=== PATIENT | female | born 1950 | race Caucasian/White ===

== ENCOUNTER 2016-07-13 12:05 | Outpatient (CLI) | payer OTHER | END 2016-07-13 12:06 | disposition home or self-care (01) | DX: M85.88 Other specified disorders of bone density and structure, other site (principal) ==

== ENCOUNTER 2016-07-13 13:30 | Outpatient (CLI) | payer OTHER ==
--- NOTE | 2016-07-14 18:53 | Mammography Report ---
DIGITAL SCREENING MAMMOGRAM: 07/13/2016 CLINICAL INDICATION: A 66-year-old for screening. COMPARISON: 06/2015, 08/2013, 12/2011, 12/2010, 02/2009. TECHNIQUE: Routine CC and MLO projections were obtained of the breasts. The breasts demonstrate scattered fibroglandular densities bilaterally. Coarse and punctate, typical ly benign calcifications are present. No suspicious masses, clustered microcalcifications, or region s of architectural distortion are identified. IMPRESSION: BENIGN FINDINGS. RECOMMENDATION: ROUTINE ANNUAL SCREENING UNLESS OTHERWISE CLINICALLY INDICATED. BIRADS CATEGORY: 2, BENIGN FINDINGS. STANDARD QUALIFYING STATEMENTS 1. This examination was reviewed with the aid of Computed-Aided Detection (CAD). 2. A negative or benign imaging report should not delay biopsy if clinically suspicious findings are present. Consider surgical consultation if warranted. More than 5% of cancers are not identified b y imaging. 3. Dense breasts may obscure an underlying neoplasm. JOB #: [id number] EXT JOB #:[id number]
== END 2016-07-13 23:59 | disposition home or self-care (01) ==
LOC: DI 13:30
PROVIDERS: ATTEND Internal Medicine
DX: Z12.31 Encounter for screening mammogram for malignant neoplasm of breast (principal)
CPT/HCPCS: 77067

== ENCOUNTER 2016-12-10 07:55 | Day surgery (SDC) | payer OTHER ==
[~2016-12-10 07:55] MED LIST: BRIMONIDINE 0.2% OPHTH DROPS 5 ML OPTH ONE; BSS/LIDOCAINE/EPINEPHRINE 1 ML SYRINGE IO ONE; CHONDR SULF/HYALURONATE SYRINGE IO ONE; EPINEPHrine 1 MG/ML AMP IVP ONE; PHENYLEPHRINE 2.5% OPHTH 2 ML DROPS ONE; PROPARACAINE 0.5% OPHTH DROPS 15 ML OPTH ONE; TIMOLOL 0.5% OPHTH DROPS OPTH ONE; TRIAMCIN/MOXIFLOX/VANCO 1 ML VIAL IO ONE
[2016-12-10] MEDS ORDERED: CYCLOPENTOLATE 1% OPHTH DROPS 2 ML OPTH ONE (08:16)
[2016-12-10] MEDS ORDERED: PHENYLEPHRINE 2.5% OPHTH 2 ML DROPS OPTH ONE (08:16)
[2016-12-10] MEDS ORDERED: KETOROLAC 0.45% OPHTH DROPS OPTH ONE (08:16)
[2016-12-10] MEDS ORDERED: PROPARACAINE 0.5% OPHTH DROPS 15 ML OPTH ONE ×2 (08:16→09:20)
[2016-12-10] MEDS ORDERED: LACTATED RINGERS 500 ML IV ONE (08:23)
[2016-12-10] MEDS ORDERED: MIDAZOLAM 2 MG/2 ML VIAL IVP ONE (09:07)
[2016-12-10] MEDS ORDERED: BRIMONIDINE 0.2% OPHTH DROPS 5 ML OPTH ONE (09:19)
[2016-12-10] MEDS ORDERED: BSS/LIDOCAINE/EPINEPHRINE 1 ML SYRINGE IO ONE (09:20)
[2016-12-10] MEDS ORDERED: CHONDR SULF/HYALURONATE SYRINGE IO ONE (09:20)
[2016-12-10] MEDS ORDERED: TIMOLOL 0.5% OPHTH DROPS OPTH ONE (09:20)
[2016-12-10] MEDS ORDERED: EPINEPHrine 1 MG/ML AMP IVP ONE (09:20)
[2016-12-10] MEDS ORDERED: TRIAMCIN/MOXIFLOX/VANCO 1 ML VIAL IO ONE (09:21)
[2016-12-10 09:41] VITALS: BP 137/67
--- NOTE | 2016-12-13 04:52 | OPERATIVE REPORT ---
DATE OF SURGERY: 12/10/2016 00:00:00 PREOPERATIVE DIAGNOSIS: Visually significant cataract, left eye; this was her first cataract surgery . POSTOPERATIVE DIAGNOSIS: Visually significant cataract, left eye; this was her first cataract surger y. PROCEDURE: Phacoemulsification and posterior chamber intraocular lens implant, left eye. SURGEON: Darshan Carmichael MD ANESTHESIA: Monitored anesthesia care. COMPLICATIONS: None. OPERATIVE INDICATIONS: This is a 66-year-old woman with progressive vision loss in the left eye due to 2+ nuclear sclerotic and 2 to 3+ cortical cataract. Best corrected visual acuity was 20/25, with a glare to 20/80 in the left eye. INDICATIONS FOR SURGERY: Difficulty reading, difficulty driving in low light or at night, difficulty driving at night because of headlights from other vehicles, and difficulty with glare of bright ligh ts in any situation. She was consented at length concerning the risks and benefits of cataract surge ry, after which she expressed a desire to proceed with surgery. OPERATIVE PROCEDURE: The patient was taken into OR #2 and placed under monitored anesthesia care. A surgical time-out was conducted, confirming the correct patient, correct procedure, and correct surgi deidre site. She was given topical anesthesia and then prepped and draped in the usual sterile fashion. The eye was entered at the 6- and 3-o'clock positions. Intracameral shugarcaine was injected into the anterior chamber, followed by Viscoat. A continuous tear curvilinear capsulorrhexis was performed. T he nucleus was hydrodissected and phacoemulsified. The cortex was evacuated using automated and infus ion aspiration. Provisc was injected into the capsular bag, and an 11.5-diopter intraocular lens was inserted into the bag. Approximately 0.7 mL of a mixture of triamcinolone, moxifloxacin, and vancomy cherelle was injected subconjunctivally in the superior quadrant for infection and inflammation prophylaxi s. I/A was used to evacuate the viscoelastic materials. The eye was inflated to physiologic pressur e using a balanced salt solution and found to be watertight. The patient was taken from the operating room in good condition and given postoperative instructions. JOB #: [id number] EXT JOB #:[id number]
== END 2016-12-10 07:56 | disposition home or self-care (01) ==
LOC: SDS 07:55
PROVIDERS: ATTEND Ophthalmology
PROC: 08RK3JZ Replacement of Left Lens with Synthetic Substitute, Percutaneous Approach (ICD-10-PCS; principal; 2016-12-10 09:00)
DX: E11.36 Type 2 diabetes mellitus with diabetic cataract (principal); H25.812 Combined forms of age-related cataract, left eye; E03.9 Hypothyroidism, unspecified; I48.91 Unspecified atrial fibrillation; G47.33 Obstructive sleep apnea (adult) (pediatric); I50.9 Heart failure, unspecified; I13.0 Hypertensive heart and chronic kidney disease with heart failure and stage 1 through stage 4 chronic kidney disease, or unspecified chronic kidney disease; N18.9 Chronic kidney disease, unspecified; Z79.84 Long term (current) use of oral hypoglycemic drugs; Z87.891 Personal history of nicotine dependence; Z79.01 Long term (current) use of anticoagulants; Z79.4 Long term (current) use of insulin
CPT/HCPCS: 66984; A9270; V2632

== ENCOUNTER 2016-12-28 18:41 | Outpatient (CLI) | payer OTHER ==
--- NOTE | 2016-12-28 23:58 | XRAY Report ---
EXAM: RIGHT KNEE RADIOGRAPHY EXAM DATE: 12/28/2016 07:05 PM. CLINICAL HISTORY: R LEG PAIN. COMPARISON: 03/05/2014. TECHNIQUE: 3 views. FINDINGS: Bones: Normal. No fractures or bone lesions. Joints: Normal. No effusion. No subluxations. Soft Tissues: Normal. No soft tissue swelling. IMPRESSION: Stable negative right knee radiography. [facility] Referring Provider Line: [phone] SITE ID: [id number]
--- NOTE | 2016-12-29 02:34 | Ultrasound Report ---
EXAM: RIGHT LOWER EXTREMITY VENOUS ULTRASOUND EXAM DATE: 12/28/2016 07:42 PM. CLINICAL HISTORY: Right leg pain. COMPARISON: None. TECHNIQUE: Real-time sonographic vascular imaging was performed by the licensed vocational nurse through the lower extremity utilizing both color-flow and Doppler spectral analysis. Multiple electronics parts sales representative static ricardo ges were saved for review. FINDINGS: Common Femoral Vein (CFV): Normal. CFV-GSV Junction: Normal. Profunda Femoral Vein (PFV): Normal. Femoral Vein (FV) Prox: Normal. Femoral Vein (FV) Mid: Normal. Femoral Vein (FV) Dist: Normal. Popliteal Vein: Normal. Posterior Tibial Veins: Normal. Peroneal Veins: Normal. Contralateral Left CFV: Normal. Other: At the site of reported pain in the anterior right knee, there is a 4 x 1 x 4 cm fluid pocket, possibly small hematoma. IMPRESSION: 1. No evidence for deep venous thrombosis. 2. At the site of reported pain in the anterior right knee, there is a 4 x 1 x 4 cm fluid pocket, pos sibly small hematoma. [facility] Referring Provider Line: [phone] SITE ID: [id number]
== END 2016-12-28 18:42 | disposition home or self-care (01) ==
LOC: DI 18:41
PROVIDERS: ATTEND Internal Medicine
DX: M79.604 Pain in right leg (principal); R93.6 Abnormal findings on diagnostic imaging of limbs

== ENCOUNTER 2017-01-28 07:06 | Day surgery (SDC) | payer OTHER ==
[~2017-01-28 07:06] MED LIST changes: +BRIMONIDINE 0.2% OPHTH DROPS 5 ML ONE; -BRIMONIDINE 0.2% OPHTH DROPS 5 ML OPTH ONE; -BSS/LIDOCAINE/EPINEPHRINE 1 ML SYRINGE IO ONE; -CHONDR SULF/HYALURONATE SYRINGE IO ONE; -EPINEPHrine 1 MG/ML AMP IVP ONE; -PHENYLEPHRINE 2.5% OPHTH 2 ML DROPS ONE; -PROPARACAINE 0.5% OPHTH DROPS 15 ML OPTH ONE; +TIMOLOL 0.5% OPHTH DROPS ONE; -TIMOLOL 0.5% OPHTH DROPS OPTH ONE; -TRIAMCIN/MOXIFLOX/VANCO 1 ML VIAL IO ONE
[2017-01-28] MEDS ORDERED: LACTATED RINGERS 1,000 ML IV ONE (07:15)
[2017-01-28] MEDS ORDERED: KETOROLAC 0.45% OPHTH DROPS ONE (07:18)
[2017-01-28] MEDS ORDERED: PHENYLEPHRINE 2.5% OPHTH 2 ML DROPS ONE (07:18)
[2017-01-28] MEDS ORDERED: CYCLOPENTOLATE 1% OPHTH DROPS 2 ML ONE (07:19)
[2017-01-28] MEDS ORDERED: PROPARACAINE 0.5% OPHTH DROPS 15 ML ONE (07:19)
[2017-01-28] MEDS ORDERED: KETOROLAC 0.45% OPHTH DROPS OPTH ONE (07:35)
[2017-01-28] MEDS ORDERED: PHENYLEPHRINE 2.5% OPHTH 2 ML DROPS OPTH ONE (07:35)
[2017-01-28] MEDS ORDERED: CYCLOPENTOLATE 1% OPHTH DROPS 2 ML OPTH ONE (07:35)
[2017-01-28] MEDS ORDERED: PROPARACAINE 0.5% OPHTH DROPS 15 ML OPTH ONE (07:35)
[2017-01-28] MEDS ORDERED: CHONDR SULF/HYALURONATE SYRINGE IO ONE (08:31)
[2017-01-28] MEDS ORDERED: PROPARACAINE 0.5% OPHTH DROPS 15 ML RIGHTEYE ONE (08:31)
[2017-01-28] MEDS ORDERED: BSS/LIDOCAINE/EPINEPHRINE 1 ML SYRINGE IO ONE ×2 (08:31)
[2017-01-28] MEDS ORDERED: TIMOLOL 0.5% OPHTH DROPS OPTH ONE (08:31)
[2017-01-28] MEDS ORDERED: TRIAMCIN/MOXIFLOX/VANCO 1 ML VIAL IO ONE ×2 (08:31)
[2017-01-28] MEDS ORDERED: EPINEPHrine 1 MG/ML AMP IVP ONE (08:31)
[2017-01-28] MEDS ORDERED: BRIMONIDINE 0.2% OPHTH DROPS 5 ML OPTH ONE (08:31)
[2017-01-28] MEDS ORDERED: PROPOFOL 200 MG/20 ML VIAL IVP ONE (08:38)
[2017-01-28] MEDS ORDERED: MIDAZOLAM 2 MG/2 ML VIAL IVP ONE (08:38)
[2017-01-28] MEDS ORDERED: LIDOCAINE-MPF 2% 5 ML VIAL IM ONE (08:38)
[2017-01-28 09:00] VITALS: BP 133/72
--- NOTE | 2017-01-28 09:11 | OPERATIVE REPORT ---
DATE OF SURGERY: 01/28/2017 00:00:00 PREOPERATIVE DIAGNOSIS: Visually significant cataract, right eye. Cataract surgery was performed on t he left eye on 12/10/2016. POSTOPERATIVE DIAGNOSIS: Visually significant cataract, right eye. Cataract surgery was performed on the left eye on 12/10/2016. NAME OF PROCEDURE: Phacoemulsification posterior chamber intraocular lens implant, right eye. SURGEON: Darshan Carmichael MD. ANESTHESIA: Monitored anesthesia care. COMPLICATIONS: None. OPERATIVE INDICATIONS: This is a 66-year-old woman with progressive vision loss in the right eye due to 2+ nuclear sclerotic and 2 to 3+ cortical cataract. Best corrected visual acuity was 20/25 with gl are to 20/70 in the right eye. Indications for surgery were overall decrease in vision, difficulty dr iving in low light or at night, difficulty driving at night because of head lights from other vehicle s, and difficulty with glare or bright lights in any situation. She was consented at length concernin g the risks and benefits of cataract surgery, after which she expressed a desire to proceed with surg patricia. OPERATIVE PROCEDURE: The patient was taken into OR #2 and placed under monitored anesthesia care. A s urgical time-out was conducted confirming the correct patient, correct procedure, and correct surgica l site. She was given topical anesthesia and then prepped and draped in the usual sterile fashion. Th e eye was entered at the 12 and 9 o'clock positions. Intracameral Shugarcaine was injected into the a nterior chamber followed by Viscoat. A continuous tear curvilinear capsulorrhexis was performed. The nucleus was hydrodissected and phacoemulsified. The cortex was evacuated using automated infusion asp iration. Provisc was injected in the capsular bag and a 14.0 diopter intraocular lens was inserted in to the bag. Approximately 0.7 mL of a mixture of triamcinolone, moxifloxacin, and vancomycin was inje cted subconjunctivally in the superior quadrant for infection and inflammation prophylaxis. I/A was u sed to evacuate the viscoelastic materials. The eye was inflated to a physiologic pressure using manisha nced salt solution and found to be watertight. The patient was taken from the operating room in good condition, given postoperative instructions. JOB #: [id number] EXT JOB #:[id number]
== END 2017-01-28 07:07 | disposition home or self-care (01) ==
LOC: SDS 07:06
PROVIDERS: ATTEND Ophthalmology
PROC: 08RJ3JZ Replacement of Right Lens with Synthetic Substitute, Percutaneous Approach (ICD-10-PCS; principal; 2017-01-28 08:30)
DX: H25.811 Combined forms of age-related cataract, right eye (principal); E11.9 Type 2 diabetes mellitus without complications; I10 Essential (primary) hypertension; I48.91 Unspecified atrial fibrillation; Z79.01 Long term (current) use of anticoagulants; E03.9 Hypothyroidism, unspecified; Z79.4 Long term (current) use of insulin; Z79.84 Long term (current) use of oral hypoglycemic drugs; Z87.891 Personal history of nicotine dependence
CPT/HCPCS: 66984; A9270; J3490; J7120; V2632

== ENCOUNTER 2017-02-11 14:14 | Emergency (ER) | payer OTHER ==
[2017-02-11 14:31] VITALS: BP 122/74
--- NOTE | 2017-02-11 15:51 | XRAY Preliminary Report ---
Exam: XR Knee 3 View RT IMPRESSION: 1. No acute findings are seen. 2. Mild medial compartment femoral tibial joint space narrowing. [facility] SITE ID: [id number]
--- NOTE | 2017-02-11 15:53 | XRAY Report ---
EXAM: RIGHT KNEE RADIOGRAPHY EXAM DATE: 02/11/2017 03:26 PM. CLINICAL HISTORY: Right knee pain. COMPARISON: Right knee 12/28/2016. TECHNIQUE: 3 views. FINDINGS: Bones: No fractures or bone lesions. Joints: No dislocation. Mild medial compartment femoral tibial joint space narrowing. No significant effusion. Soft Tissues: Unremarkable IMPRESSION: 1. No acute findings are seen. 2. Mild medial compartment femoral tibial joint space narrowing. [facility] Referring Provider Line: [phone] SITE ID: [id number]
--- NOTE | 2017-02-11 16:06 | ED Physician Documentation ---
PD HPI LOWER EXT INJURY - Stated complaint Stated Complaint: RT KNEE PX - Chief complaint Chief Complaint: Ext Problem - History obtained from History obtained from: Patient - History of Present Illness PD HPI LOW EXT INJURY LOCATION: Right, Knee Type of injury: Other (No recent trauma.) Timing - onset: Today Worsened by: Other (Worse with weightbearing.) Similar symptoms before: Diagnosis (Previously diagnosed with contusion of the right knee with negative x-ray 6 weeks ago.) - Additional information Additional information: The patient is a 66-year-old female who presents with pain in her right knee that started earlier today while walking. The pain is worse with weightbearing. She denies any recent traumatic injury. She denies fever. She has a history of similar pain in her knee in the past. After a negative x-ray about 6 weeks ago. She was diagnosed with knee contusion. Review of Systems Constitutional: denies: Fever Nose: denies: Congestion Respiratory: denies: Dyspnea GI: denies: Nausea, Vomiting Skin: denies: Rash Musculoskeletal: reports: Joint pain (right knee). 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 Cardiovascular: Other - Present Medications Home Medications: Ambulatory Orders Medication Instructions Recorded Confirmed Diltiazem HCl [Taztia Xt] 360 mg PO DAILY 06/26/14 02/11/17 Insulin Aspart [Novolog] 4 unit SQ DAILY 06/26/14 02/11/17 Liraglutide [Victoza 2-Fransisco] 1.5 ml SUBQ DAILY 06/26/14 02/11/17 Metformin HCl 500 tab PO BID 06/26/14 02/11/17 Simvastatin 20 mg PO DAILY 06/26/14 02/11/17 Warfarin [Coumadin] 1 tab PO DAILY 06/26/14 02/11/17 Furosemide 20 mg PO DAILY 09/14/14 02/11/17 Metoprolol Tartrate 12.5 mg PO BID 12/25/14 02/11/17 Lisinopril 10 mg PO BID 01/22/15 02/11/17 Cholecalciferol (Vitamin D3) 400 unit PO DAILY 08/30/15 02/11/17 [Vitamin D] Iron,Carbonyl/Vit C/Fos [Chewable 325 mg PO DAILY 08/30/15 02/11/17 Iron 30 mg Tablet] Multivitamin [Multivitamins] 1 each PO DAILY 08/30/15 02/11/17 Insulin Glargine,Hum.rec.anlog 30 unit SQ DAILY 11/01/15 02/11/17 [Toujeo Solostar] Digoxin 1 tab PO DAILY 12/09/16 02/11/17 Fenofibric Acid 45 mg PO DAILY 12/09/16 02/11/17 Naproxen 1 tab PO DAILY 12/09/16 02/11/17 Prazosin [Minipress] 1 tab PO DAILY 12/09/16 02/11/17 Nystatin Cream [Mycostatin Cream] 1 applic PO DAILY 02/11/17 02/11/17 - Allergies Allergies/Adverse Reactions: Allergies Allergy/AdvReac Type Severity Reaction Status Date / Time estrogens, conjugated Allergy Unknown Verified 02/11/17 14:32 [From Prempro] medroxyprogesterone acetate * Allergy Unknown Verified 02/11/17 14:32 [From Prempro] - Social History Does the pt smoke?: No Smoking Status: Never smoker Does the pt drink ETOH?: No Does the pt have substance abuse?: No - Immunizations Immunizations are current?: Yes - POLST Patient has POLST: No PD ED PE NORMAL - Vitals Vital signs reviewed: Yes (normal) - General General: Alert and oriented X 3, Other (overweight) - HEENT HEENT: Atraumatic - Neck Neck: No bony TTP - Cardiac Cardiac: RRR - Respiratory Respiratory: No respiratory distress - Back Back: No spinal TTP - Derm Derm: No rash - Extremities Extremities: No edema, No calf tenderness / cord, Other (There is mild tenderness to palpation across the anterolateral aspect of the right knee. There is no joint effusion detected, and no warmth or erythema to palpation of the knee. She has full flexion and extension, and there is no ligamentous instability detected. Distal neurovascular is intact.) - Neuro Neuro: Alert and oriented X 3, No motor deficit, No sensory deficit, Normal speech Results - Vitals Vitals: Oxygen O2 Source Room air - Rads (name of study) right knee xray Radiology: Prelim report reviewed, EMP read contemporaneously, See rad report ( No acute findings are seen. Mild medial compartment femoral tibial joint space narrowing.) PD MEDICAL DECISION MAKING - ED course Complexity details: reviewed old records, reviewed results, re-evaluated patient , considered differential, d/w patient, d/w family ED course: The patient's presentation is most consistent with a strain of the right knee. X-ray reveals no bony abnormality. There is no evidence to suggest septic joint or significant ligamentous injury. She may have a meniscus tear causing her symptoms. Treatment in the emergency department included application of a knee immobilizer. This did improve the patient's ability to ambulate with diminished pain. I discussed with her and her the diagnosis, symptomatic treatment and outpatient follow-up, as well as potentially worrisome signs or symptoms that should prompt reevaluation in the emergency department. Departure - Departure Disposition: 01 Home, Self Care Clinical Impression: Right knee sprain Qualifiers: Encounter type: initial encounter Involved ligament of knee: lateral collateral ligament Qualified Code(s): S83.421A - Sprain of lateral collateral ligament of right knee, initial encounter Condition: Stable Instructions: ED Sprain Knee Follow-Up: Phillip Fisher MD [Primary Care Provider] - Comments: Use the knee immobilizer if it provides comfort. Apply ice pack intermittently for the next 3 or 4 days. You can use ibuprofen, up to 800 mg 3 times daily for its anti-inflammatory effect. Follow up with your primary physician within 2 weeks. Call to schedule an appointment. Return to the emergency department if you develop increasing pain or swelling of the knee, or otherwise worsening symptoms. Forms: Activity restrictions Discharge Date/Time: 02/11/17 16:36
== END 2017-02-11 16:36 | disposition home or self-care (01) ==
LOC: ED 14:14
DX: S83.421A Sprain of lateral collateral ligament of right knee, initial encounter (principal); X50.9XXA Other and unspecified overexertion or strenuous movements or postures, initial encounter; Y93.01 Activity, walking, marching and hiking; I11.0 Hypertensive heart disease with heart failure; I50.9 Heart failure, unspecified; I48.91 Unspecified atrial fibrillation; Z79.01 Long term (current) use of anticoagulants; G47.30 Sleep apnea, unspecified; J45.909 Unspecified asthma, uncomplicated; E11.9 Type 2 diabetes mellitus without complications; Z79.4 Long term (current) use of insulin; Z79.84 Long term (current) use of oral hypoglycemic drugs; M19.90 Unspecified osteoarthritis, unspecified site; K21.9 Gastro-esophageal reflux disease without esophagitis
CPT/HCPCS: 99283

== ENCOUNTER 2017-04-23 12:47 | Emergency (ER) | payer OTHER, MEDICARE ==
--- NOTE | 2017-04-23 14:29 | ED Physician Documentation ---
PD HPI HEENT - Stated complaint Stated Complaint: R FACE SWELLING - Chief complaint Chief Complaint: General - History obtained from History obtained from: Patient - History of Present Illness Timing - onset: How many days ago (3) Timing - duration: Days (3) Timing - details: Abrupt onset, Still present Location: Tooth (right cheek and face) Worsens: Position Associated symptoms: Congestion, Swollen nodes, Facial swelling. No: Fever, Headache, Cough Similar symptoms before: Has not had sx before Recently seen: Clinic (seen by PMD today and sent to ED for concern of deeper infection) Review of Systems Constitutional: reports: Fever, Chills Eyes: denies: Loss of vision, Decreased vision Nose: reports: Congestion, Sinus pressure / pain. denies: Rhinorrhea / runny nose Throat: denies: Sore throat Cardiac: denies: Chest pain / pressure, Palpitations Respiratory: denies: Dyspnea, Cough GI: denies: Nausea, Vomiting, Diarrhea Skin: denies: Rash, Lesions PD PAST MEDICAL HISTORY - Past Medical History Cardiovascular: Congestive heart failure, Hypertension, Atrial fibrillation Respiratory: Asthma, Sleep apnea, CPAP use Neuro: None Endocrine/Autoimmune: Type 2 diabetes GI: GERD : Incontinence, Renal insuffiency, Nocturia HEENT: None Psych: Depression Musculoskeletal: Osteoarthritis, Chronic back pain Derm: None - Past Surgical History Past Surgical History: Yes 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 Cardiovascular: Other - Present Medications Home Medications: Ambulatory Orders Medication Instructions Recorded Confirmed Diltiazem HCl [Taztia Xt] 360 mg PO DAILY 06/26/14 03/16/17 Insulin Aspart [Novolog] 4 unit SQ DAILY 06/26/14 03/16/17 Metformin HCl 500 tab PO DAILY 06/26/14 03/16/17 Simvastatin 20 mg PO DAILY 06/26/14 03/16/17 Warfarin [Coumadin] 5 mg PO DAILY 06/26/14 03/16/17 Furosemide 20 mg PO DAILY 09/14/14 03/16/17 Metoprolol Tartrate 25 mg PO DAILY 12/25/14 03/16/17 Lisinopril 10 mg PO BID 01/22/15 03/16/17 Cholecalciferol (Vitamin D3) 400 unit PO DAILY 08/30/15 03/16/17 [Vitamin D] Multivitamin [Multivitamins] 1 each PO DAILY 08/30/15 03/16/17 Prazosin [Minipress] 1 mg PO DAILY 12/09/16 03/16/17 Acetaminophen [Tylenol Extra 500 mg PO DAILY 03/16/17 03/16/17 Strength] Albiglutide [Tanzeum] 30 mg SQ Q7D 03/16/17 03/16/17 Alendronate Sodium [Binosto] 70 mg PO Q7D 03/16/17 03/16/17 Eluxadoline [Viberzi] 75 mg PO DAILY 03/16/17 03/16/17 Fenofibric Acid (Choline) 45 mg PO DAILY 03/16/17 03/16/17 [Trilipix] Ferrous Sulfate 325 mg PO DAILY 03/16/17 03/16/17 Insulin Glargine [Lantus Solostar] 100 unit SQ DAILY 03/16/17 03/16/17 Cephalexin [Keflex] 500 mg PO QID #24 capsule 04/23/17 Ondansetron HCl [Zofran] 4 mg PO Q6H PRN #20 tablet 04/23/17 - Allergies Allergies/Adverse Reactions: Allergies Allergy/AdvReac Type Severity Reaction Status Date / Time estrogens, conjugated Allergy Unknown Verified 02/11/17 14:32 [From Prempro] medroxyprogesterone acetate * Allergy Unknown Verified 02/11/17 14:32 [From Prempro] - Social History Does the pt smoke?: No Smoking Status: Never smoker Does the pt drink ETOH?: No Does the pt have substance abuse?: No - Immunizations Immunizations are current?: Yes - POLST Patient has POLST: No PD ED PE NORMAL - Vitals Vital signs reviewed: Yes - General General: Alert and oriented X 3, No acute distress, Well developed/nourished - HEENT HEENT: Ears normal, Pharynx benign, Other (gum line with some swelling right upper. ) - Neck Neck: Supple, no meningeal sign - Cardiac Cardiac: RRR, No murmur - Respiratory Respiratory: Clear bilaterally - Abdomen Abdomen: Soft, Non tender Results - Vitals Vitals: Oxygen O2 Source Room air - Labs Labs: Laboratory Tests 04/23/17 04/23/17 04/23/17 14:47 15:20 15:20 WBC 17.8 H RBC 4.67 Hgb 12.6 Hct 38.7 MCV 83.0 MCH 27.0 MCHC 32.5 RDW 17.3 H Plt Count 307 MPV 9.0 Neut # 14.9 H Lymph # 1.2 L Baca # 1.7 H Eos # 0.1 Baso # 0.1 Absolute Nucleated RBC 0.01 Nucleated RBC % 0.0 Manual Slide Review Indicated Platelet Estimate NORMAL (130-450,000) Platelet Morphology RARE GIANT PLATELETS RBC Morph Micro Appear NORMAL APPEARANCE PT INR Sodium 127 L Potassium 4.0 Chloride 95 L Carbon Dioxide 21 Anion Gap 11.0 BUN 24 H Creatinine 1.4 H Estimated GFR (MDRD) 38 L Glucose 273 H POC Whole Bld Glucose 263 H Lactic Acid Calcium 7.9 L Total Bilirubin 0.5 AST 22 ALT 20 Alkaline Phosphatase 64 Total Protein 7.9 Albumin 3.3 Globulin 4.6 H Albumin/Globulin Ratio 0.7 L Lipase 21 L 04/23/17 04/23/17 04/23/17 15:20 15:20 15:58 WBC RBC Hgb Hct MCV MCH MCHC RDW Plt Count MPV Neut # Lymph # Baca # Eos # Baso # Absolute Nucleated RBC Nucleated RBC % Manual Slide Review Platelet Estimate Platelet Morphology RBC Morph Micro Appear PT 21.8 H INR 2.0 H Sodium Potassium Chloride Carbon Dioxide Anion Gap BUN Creatinine Estimated GFR (MDRD) Glucose POC Whole Bld Glucose 304 H Lactic Acid 2.1 Calcium Total Bilirubin AST ALT Alkaline Phosphatase Total Protein Albumin Globulin Albumin/Globulin Ratio Lipase PD MEDICAL DECISION MAKING - ED course Complexity details: considered differential (looks like facial cellulitis without abscess. ), d/w patient Departure - Departure Disposition: Home, Self Care Clinical Impression: Facial cellulitis Condition: Stable Record reviewed to determine appropriate education?: Yes Instructions: ED Cellulitis Facial Follow-Up: Phillip Fisher MD [Primary Care Provider] - Prescriptions: Cephalexin [Keflex] 500 mg PO QID #24 capsule Ondansetron HCl [Zofran] 4 mg PO Q6H PRN #20 tablet PRN Reason: Nausea / Vomiting Comments: Warm moist towels to the area of redness and swelling a few times a day. Cephalexin 4 times a day as directed antibiotic. This looks like a facial skin infection and so we will treated that way. Follow-up with Dr. Phillip Fisher early next week. Return to the ER sooner if worsening such as increased redness , pain, fevers, vomiting or other concerns. Discharge Date/Time: 04/23/17 17:49
[2017-04-23] MEDS ORDERED: KETOROLAC 60 MG/2 ML VIAL IVP STA (15:04)
[2017-04-23] MEDS ORDERED: HYDROmorphone 1 MG/ML SYRINGE IVP STA (15:04)
[2017-04-23] MEDS ORDERED: ceFAZolin 2 GM/50 ML 2 GM/50 ML BAG IV ONE ×2 (15:15→15:30)
[2017-04-23 15:30] LABS: BASOPHILS # (AUTO) 0.1 10^3/uL (0.0-0.1); BASOPHILS % (AUTO) 0.5 %; EOSINOPHILS # (AUTO) 0.1 10^3/uL (0.0-0.7); EOSINOPHILS % (AUTO) 0.4 %; HCT - HEMATOCRIT 38.7 % (37.0-47.0); HGB - HEMOGLOBIN 12.6 g/dL (12.0-16.0); LYMPHOCYTES # (AUTO) 1.2 10^3/uL (1.5-3.5); LYMPHOCYTES % (AUTO) 6.6 %; MEAN CORPUSCULAR HGB CONC 32.5 g/dL (32.0-36.0); MONOCYTES # (AUTO) 1.7 10^3/uL (0.0-1.0); MONOCYTES % (AUTO) 9.3 %; NEUTROPHILS # (AUTO) 14.9 10^3/uL (1.5-6.6); NEUTROPHILS % (AUTO) 83.2 %; RED BLOOD COUNT 4.67 10^6/uL (4.20-5.40); RED CELL DISTRIBUTION WIDTH 17.3 % (12.0-15.0); UNCORRECTED WHITE BLOOD COUNT 17.8 x10^3/uL; WHITE BLOOD COUNT 17.8 x10^3/uL (4.8-10.8)
[2017-04-23] MEDS ORDERED: KETOROLAC 30 MG/ML VIAL ONE (15:30)
[2017-04-23] MEDS ORDERED: HYDROmorphone 1 MG/ML SYRINGE ONE (15:30)
[2017-04-23 15:33] LABS: PT - PROTHROMBIN TIME 21.8 secs (9.9-12.6)
[2017-04-23 15:38] LABS: ALBUMIN/GLOBULIN RATIO 0.7 (1.0-2.2); BILIRUBIN,TOTAL 0.5 mg/dL (0.2-1.0); CALCIUM 7.9 mg/dL (8.5-10.3); CREATININE 1.4 mg/dL (0.4-1.0); TOTAL PROTEIN 7.9 g/dL (6.7-8.2)
[2017-04-23] MEDS ORDERED: ONDANSETRON 4 MG/2 ML VIAL IVP STA (15:47)
[2017-04-23] MEDS ORDERED: ONDANSETRON 4 MG/2 ML VIAL ONE (15:53)
[2017-04-23] MEDS ORDERED: SODIUM CHLORIDE 0.9% 1,000 ML IV ONE (15:57)
[2017-04-23 16:01] LABS: PLATELET ESTIMATE, MANUAL NORMAL (130-450,000) (NORMAL); PLATELET MORPHOLOGY RARE GIANT PLATELETS (NORMAL)
[2017-04-23] MEDS ORDERED: INSULIN GLARGINE 300 UNIT/3 ML PEN SUBQ STA (16:03)
[2017-04-23 17:49] VITALS: BP 118/68
== END 2017-04-23 17:49 | disposition home or self-care (01) ==
LOC: ED 12:47
DX: L03.211 Cellulitis of face (principal); I11.0 Hypertensive heart disease with heart failure; I50.9 Heart failure, unspecified; E11.9 Type 2 diabetes mellitus without complications; Z79.4 Long term (current) use of insulin
CPT/HCPCS: 36415; 80053; 83605; 83690; 85025; 85610; 96361; 96365; 96375; 99283; 99284; J0690; J1170; J1815

== ENCOUNTER 2017-04-30 16:40 | Outpatient (CLI) | payer OTHER, MEDICARE ==
--- NOTE | 2017-05-01 23:38 | Ultrasound Report ---
EXAM: AORTIC DOPPLER ULTRASOUND EXAM DATE: 04/30/2017 05:32 PM. CLINICAL HISTORY: Hypertension. Evaluate aorta. COMPARISON: Noncontrast CT abdomen/pelvis 08/17/2014. TECHNIQUE: Real-time sonographic imaging of retroperitoneal vascular structures, including color-flow , Doppler flow and spectral analysis was performed by the rivet heater. Multiple in home sales representative static images were saved for review. FINDINGS: Aorta: The abdominal aorta was adequately visualized. No evidence for abdominal aortic aneurysm. Athe rosclerotic calcifications visualized. Aorta: Proximal: Sagittal AP: 1.6 cm. Mid: Transverse: 1.4 X 1.3 cm. Distal: Transverse: 1.1 X 1.0 cm. Iliac Vessels: The visualized proximal common iliac arteries are normal in caliber. Atherosclerotic c alcifications visualized. Iliacs: Right Iliac: AP Dimension: .93 x .90 cm. Left Iliac: AP Dimension: .86 x .88 cm. IMPRESSION: No abdominal aortic aneurysm. [facility] Referring Provider Line: [phone] SITE ID: [id number]
== END 2017-04-30 16:41 | disposition home or self-care (01) ==
LOC: DI 16:40
PROVIDERS: ATTEND Internal Medicine
DX: I10 Essential (primary) hypertension (principal)
CPT/HCPCS: 76775

== ENCOUNTER 2017-11-01 14:05 | Outpatient (CLI) | payer OTHER, MEDICARE ==
--- NOTE | 2017-11-03 15:09 | Mammography Report ---
Procedure Date: 11/01/2017 Accession Number: [id number] / [id number] Procedure: ALLIE - Screening Mammo Dig Bilat CPT Code: FULL RESULT: EXAM: Screening Mammo Dig Bilat DATE: 11/01/2017 3:10 PM CLINICAL HISTORY: 67-year-old with family history of breast cancer for screening COMPARISON: 07/13/2016, 06/24/2015, 08/29/2013, 01/05/2012, 12/23/2010 TECHNIQUE: Bilateral CC and MLO views were obtained. FINDINGS: The breasts demonstrate scattered fibroglandular densities bilaterally. Course, typically benign calcifications are present. No suspicious masses, clustered microcalcifications, or regions of architectural distortion are identified. IMPRESSION: Benign findings RECOMMENDATION: Routine annual screening unless otherwise clinically indicated. BIRADS CATEGORY 2: Benign findings STANDARD QUALIFYING STATEMENTS: 1. This examination was reviewed with the aid of Computer-Aided Detection (CAD). 2. A negative or benign imaging report should not delay biopsy if clinically suspicious findings are present. Consider surgical consultation if warrented. More than 5% of cancers are not identified by imaging. 3. Dense breasts may obscure an underlying neoplasm.
== END 2017-11-01 14:06 | disposition home or self-care (01) ==
LOC: DI 14:05
PROVIDERS: ATTEND Internal Medicine
DX: Z12.31 Encounter for screening mammogram for malignant neoplasm of breast (principal); Z80.3 Family history of malignant neoplasm of breast
CPT/HCPCS: 77067

== ENCOUNTER 2017-11-01 14:05 | Outpatient (CLI) | payer OTHER, MEDICARE ==
--- NOTE | 2017-11-04 11:55 | Ultrasound Report ---
Procedure Date: 11/02/2017 Accession Number: [id number] / [id number] Procedure: US - Abdomen Complete CPT Code: FULL RESULT: EXAM: ABDOMEN ULTRASOUND EXAM DATE: 11/01/2017 04:13 PM. CLINICAL HISTORY: Abdominal pain. COMPARISON: None. TECHNIQUE: Real-time scanning was performed with static images obtained. FINDINGS: Liver: The liver is heterogeneously echogenic in appearance suggesting fibrofatty infiltration. No suspicious lesions or masses are identified. Liver is mildly enlarged measuring 18.8 cm. Main portal vein flow: Hepatopetal. Gallbladder: Normal. No stones, wall thickening, or sonographic Bull's sign. Biliary System: Common bile duct measures 6 mm. No intrahepatic or extrahepatic ductal dilatation. Pancreas: Visualized portion is unremarkable. Kidneys: Right: 10.0 cm longitudinally. A small peripelvic cyst is seen measuring 1.6 cm. Punctate calcification is seen in the renal cortex in the upper pole. No contour-deforming mass, stones, or hydronephrosis. Left: 8.2 cm longitudinally. Mild cortical atrophy and increased echogenicity is seen. A nonobstructing stone is suggested in the lower pole left kidney. Otherwise, no contour-deforming mass, stones, or hydronephrosis. Spleen: 12.5 cm. Normal in size and echotexture. Aorta and Inferior Vena Cava: Unremarkable. Other: None. IMPRESSION: 1. No acute intra-abdominal abnormality demonstrated. 2. Mild hepatomegaly and fatty change of the liver. 3. Left-sided nephrolithiasis without hydronephrosis. 4. Slight atrophy of the left kidney which suggesting prior unilateral parenchymal insult. 5. Small right renal cyst also seen. [facility]
== END 2017-11-01 14:06 | disposition home or self-care (01) ==
LOC: DI 14:05
PROVIDERS: ATTEND Internal Medicine
DX: K76.0 Fatty (change of) liver, not elsewhere classified (principal); N20.0 Calculus of kidney; N26.1 Atrophy of kidney (terminal); Q61.01 Congenital single renal cyst
CPT/HCPCS: 76700

== ENCOUNTER 2018-02-21 10:55 | Outpatient (CLI) | payer OTHER, MEDICARE | END 2018-02-21 10:56 | disposition home or self-care (01) | LOC: SC 10:55 | PROVIDERS: ATTEND Internal Medicine Pulmonary Disease | DX: G47.33 Obstructive sleep apnea (adult) (pediatric) (principal) | CPT/HCPCS: 99203; 99212 ==

== ENCOUNTER 2018-04-18 15:39 | Emergency (ER) | payer OTHER, MEDICARE ==
[2018-04-18] MEDS ORDERED: PROMETHAZINE INJ 25 MG in SODIUM CHLORIDE 0.9% 50 ML IV STA (16:31)
[2018-04-18] MEDS ORDERED: ACETAMINOPHEN 1,000 MG/100 ML 100 ML IV STA (16:31)
[2018-04-18] MEDS ORDERED: diphenhydrAMINE INJ 50 MG/ML VIAL IVP STA (16:31)
--- NOTE | 2018-04-18 16:37 | ED Physician Documentation ---
PD HPI HEADACHE - Stated complaint Stated Complaint: SMALL,SENT BY DOC - Chief complaint Chief Complaint: Neuro - History obtained from History obtained from: Patient, Family - History of Present Illness Timing - onset: Yesterday Timing - onset during: Rest Timing - duration: Days (1) Timing - details: Gradual onset Pain level max: 8 Pain level now: 6 Location: Back Quality: Throbbing Associated symptoms: Nausea. No: Fever, Stiff neck, Vomiting, Weakness, Numbness, Syncope, Seizure, Eye pain Improved by: Rest Worsened by: Light, Noise Contributing factors: Anticoagulated (warfarin for a fib). No: Possible carbon monoxide Recently seen: Clinic (sent from clinic as well) - Additional information Additional information: pain is from her neck to the back of her head. states increased stress at home, especially yesterday. PD PAST MEDICAL HISTORY - Past Medical History Past Medical History: No Cardiovascular: Congestive heart failure, Hypertension, Atrial fibrillation Respiratory: Asthma, Sleep apnea, CPAP use Neuro: None Endocrine/Autoimmune: Type 2 diabetes GI: GERD SAP BW ARCHITECT: None : Incontinence, Renal insuffiency, Nocturia HEENT: None Psych: Depression Musculoskeletal: Osteoarthritis, Chronic back pain Derm: None - Past Surgical History Past Surgical History: Yes Ortho: Spine surgery /SAP BW ARCHITECT: Tubal ligation Cardiovascular: Other - Present Medications Home Medications: Ambulatory Orders Medication Instructions Recorded Confirmed Diltiazem HCl [Taztia Xt] 360 mg PO DAILY 06/26/14 04/05/18 Insulin Aspart [Novolog] 4 unit SQ DAILY 06/26/14 04/05/18 Metformin HCl 500 tab PO DAILY 06/26/14 04/05/18 Simvastatin 20 mg PO DAILY 06/26/14 04/05/18 Warfarin [Coumadin] 5 mg PO DAILY 06/26/14 04/05/18 Furosemide 20 mg PO DAILY 09/14/14 04/05/18 Metoprolol Tartrate 25 mg PO DAILY 12/25/14 04/05/18 Lisinopril 10 mg PO BID 01/22/15 04/05/18 Cholecalciferol (Vitamin D3) 400 unit PO DAILY 08/30/15 04/05/18 [Vitamin D] Multivitamin [Multivitamins] 1 each PO DAILY 08/30/15 04/05/18 Prazosin [Minipress] 1 mg PO DAILY 12/09/16 04/05/18 Acetaminophen [Tylenol Extra 500 mg PO DAILY 03/16/17 04/05/18 Strength] Albiglutide [Tanzeum] 30 mg SQ Q7D 03/16/17 04/05/18 Alendronate Sodium [Binosto] 70 mg PO Q7D 03/16/17 04/05/18 Eluxadoline [Viberzi] 75 mg PO DAILY 03/16/17 04/05/18 Fenofibric Acid (Choline) 45 mg PO DAILY 03/16/17 04/05/18 [Trilipix] Ferrous Sulfate 325 mg PO DAILY 03/16/17 04/05/18 Insulin Glargine [Lantus Solostar] 100 unit SQ DAILY 03/16/17 04/05/18 Cephalexin [Keflex] 500 mg PO QID #24 capsule 04/23/17 04/05/18 Ondansetron HCl [Zofran] 4 mg PO Q6H PRN #20 tablet 04/23/17 04/05/18 - Allergies Allergies/Adverse Reactions: Allergies Allergy/AdvReac Type Severity Reaction Status Date / Time estrogens, conjugated Allergy Unknown Verified 04/18/18 15:53 [From Prempro] medroxyprogesterone acetate * Allergy Unknown Verified 04/18/18 15:53 [From Prempro] - Social History Does the pt smoke?: No Smoking Status: Never smoker Does the pt drink ETOH?: No Does the pt have substance abuse?: No - Immunizations Immunizations are current?: Yes - POLST Patient has POLST: No Results - Vitals Vitals: Vital Signs - 24 hr 04/18/18 04/18/18 04/18/18 15:49 19:48 21:26 Temperature 36.2 C L Heart Rate 68 81 120 H Respiratory 20 20 16 Rate Blood Pressure 148/97 H 151/119 H O2 Saturation 96 98 99 Oxygen O2 Source Room air - EKG (time done) 2012 Rate: Rate (enter#) (131) Rhythm: Atrial fibrillation (w/ RVR) Ischemia: Non specific changes - Labs Labs: Laboratory Tests 04/18/18 04/18/18 04/18/18 17:08 17:08 17:08 WBC 21.3 H RBC 5.32 Hgb 14.1 Hct 45.4 MCV 85.3 MCH 26.6 L MCHC 31.1 L RDW 17.1 H Plt Count 515 H MPV 8.8 Neut # (Auto) Not Reportable Lymph # (Auto) Not Reportable [place] # (Auto) Not Reportable Eos # (Auto) Not Reportable Baso # (Auto) Not Reportable Absolute Nucleated RBC Not Reportable Total Counted 100 Band Neuts % (Manual) 1 Abnorm Lymph % (Manual) 0 Nucleated RBC % Not Reportable Neutrophils # (Manual) 17.7 H Lymphocytes # (Manual) 2.8 Monocytes # (Manual) 0.2 Eosinophils # (Manual) 0.4 Basophils # (Manual) 0.2 H Differential Comment MANUAL DIFFERENTIAL Manual Slide Review Indicated WBC Morphology NORMAL APPEARANCE Platelet Estimate INCREASED (>450,000) Platelet Morphology NORMAL APPEARANCE RBC Morph Micro Appear 1+ ANISOCYTOSIS PT 29.1 H INR 2.6 H Sodium 133 L Potassium 3.9 Chloride 96 L Carbon Dioxide 25 Anion Gap 12.0 BUN 40 H Creatinine 1.3 H Estimated GFR (MDRD) 41 L Glucose 276 H Calcium 9.2 Total Bilirubin 0.4 AST 19 ALT 26 Alkaline Phosphatase 84 Total Protein 8.7 H Albumin 3.7 Globulin 5.0 H Albumin/Globulin Ratio 0.7 L Lipase 30 - Rads (name of study) head CT Radiology: Prelim report reviewed, EMP read contemporaneously, See rad report (1. There is a mildly hyperdense lesion measuring 1.2 x 2.2 x 2.1 cm centered within the right posterior frontotemporal region. There is surrounding hypodensity, likely guest service representative of edema. Differential considerations include small primary hemorrhage or hyperdense mass lesion. Contrast-enhanced MRI could be used for further evaluation as indicated. 2. There is an indeterminate subcentimeter hypodensity within the right frontal subcortical region. This could represent an additional lesion or small remote infarct. 3. There is no evidence of significant mass-effect. ) PD MEDICAL DECISION MAKING - ED course Complexity details: reviewed results, re-evaluated patient (no changes in neuro status during ED stay.), considered differential, d/w patient, d/w business consultant ED course: Patient is a 68-year-old female who presents to the emergency department with a sudden onset headache last night. Found to have a hyperdense lesion in the right frontotemporal region on CT scan, possible intracranial hemorrhage versus hyperdense mass lesion. MRI is unavailable here tonight. I contacted Luiz drummond who is evaluating for a bed. Initial phone call was made at 1740, phone call returned at [address] Albino Garcia. I then spoke with Kika Yung 1932 nurse practitioner who accepts to [facility]. Patient was given K Centra and vitamin K to reverse her anticoagulation. She remains GCS 15 with a normal neurological exam. Patient transferred, COBRA forms completed Dr. Garcia called back and states there are no ICU beds at [facility]. Recommends transfer to [facility]. I then discussed the case with Dr. Salima Bliss [phone], stroke physician on-call who graciously accepts in transfer to [facility]. This document was made in part using voice recognition software. While efforts are made to proofread this document, sound alike and grammatical errors may occur. Departure - Departure Disposition: 02 Transfer Acute Care Hosp Clinical Impression: Intracranial hemorrhage, Anticoagulated on Coumadin Condition: Stable Discharge Date/Time: 04/18/18 22:04
[2018-04-18 17:21] LABS: BASOPHILS % (AUTO) 0.3 %; HGB - HEMOGLOBIN 14.1 g/dL (12.0-16.0); LYMPHOCYTES % (AUTO) 10.5 %; MEAN CORPUSCULAR HEMOGLOBIN 26.6 pg (27.0-31.0); MEAN CORPUSCULAR HGB CONC 31.1 g/dL (32.0-36.0); MEAN CORPUSCULAR VOLUME 85.3 fL (81.0-99.0); MEAN PLATELET VOLUME 8.8 fL (7.9-10.8); MONOCYTES % (AUTO) 5.1 %; NEUTROPHILS % (AUTO) 83.1 %; PLT - PLATELET COUNT 515 10^3/uL (130-450); RED BLOOD COUNT 5.32 10^6/uL (4.20-5.40); RED CELL DISTRIBUTION WIDTH 17.1 % (12.0-15.0); WHITE BLOOD COUNT 21.3 x10^3/uL (4.8-10.8)
[2018-04-18 17:29] LABS: INR 2.6 (0.8-1.2); PT - PROTHROMBIN TIME 29.1 secs (9.9-12.6)
--- NOTE | 2018-04-18 17:31 | CT Report ---
Reason: headache, posterior, on warfarin Procedure Date: 04/18/2018 Accession Number: [id number] / [id number] Procedure: CT - Head W/O CPT Code: FULL RESULT: EXAM: CT HEAD EXAM DATE: 04/18/2018 04:49 PM. CLINICAL HISTORY: Headache, posterior, on warfarin. COMPARISON: None. TECHNIQUE: Multiaxial CT images were obtained from the foramen magnum to the vertex. Reformats: Sagittal and coronal. IV contrast: None. In accordance with CT protocol optimization, one or more of the following dose reduction techniques were utilized for this exam: automated exposure control, adjustment of mA and/or KV based on patient size, or use of iterative reconstructive technique. FINDINGS: Parenchyma: There is a region of focal hyperdensity measuring 1.2 x 2.2 x 2.1 cm centered within the right posterior frontotemporal region (image 15 series 3). There is surrounding hypodensity. There is no evidence of significant associated mass-effect. Questionable small hypodensity within the right frontal subcortical region (image 17 series 3). Mild periventricular white matter hypodensity may represent small vessel ischemic disease. Extraaxial Spaces: Normal for age. No subdural or epidural collections identified. Ventricles: Normal in size and position. Sinuses and Orbits: Imaged paranasal sinuses, orbits, and mastoids show no significant abnormality. Bones: No evidence of fracture or calvarial defect. Other: None. IMPRESSION: 1. There is a mildly hyperdense lesion measuring 1.2 x 2.2 x 2.1 cm centered within the right posterior frontotemporal region. There is surrounding hypodensity, likely electroplating sales representative of edema. Differential considerations include small primary hemorrhage or hyperdense mass lesion. Contrast-enhanced MRI could be used for further evaluation as indicated. 2. There is an indeterminate subcentimeter hypodensity within the right frontal subcortical region. This could represent an additional lesion or small remote infarct. 3. There is no evidence of significant mass-effect. RADIA The above findings were discussed with Jose Doe by Dr. Chrissy Sales at 17:29 hrs on 04/18/18.
[2018-04-18] MEDS ORDERED: PROTHROMBIN COMPLEX CONC 500 UNIT VIAL IVP STA (17:36)
[2018-04-18 17:37] LABS: ALBUMIN 3.7 g/dL (3.2-5.5); ALBUMIN/GLOBULIN RATIO 0.7 (1.0-2.2); BILIRUBIN,TOTAL 0.4 mg/dL (0.2-1.0); CALCIUM 9.2 mg/dL (8.5-10.3); CREATININE 1.3 mg/dL (0.4-1.0); TOTAL PROTEIN 8.7 g/dL (6.7-8.2)
[2018-04-18 17:46] LABS: ABNORMAL LYMPHS % (MANUAL) 0 %
[2018-04-18 17:48] LABS: BAND NEUTROPHILS % (MANUAL) 1 %; BASOPHILS # (MANUAL) 0.2 10^3/uL (0-0.1); BASOPHILS % (MANUAL) 1 %; EOSINOPHILS # (MANUAL) 0.4 10^3/uL (0-0.7); LYMPHOCYTES # (MANUAL) 2.8 10^3/uL (1.5-3.5); LYMPHOCYTES % (MANUAL) 13 %; MONOCYTES # (MANUAL) 0.2 10^3/uL (0.0-1.0); NEUTROPHILS # (MANUAL) 17.7 10^3/uL (1.5-6.6); NEUTROPHILS % (MANUAL) 82 %
[2018-04-18 17:49] LABS: DIFFERENTIAL COMMENT MANUAL DIFFERENTIAL; PLATELET ESTIMATE, MANUAL INCREASED (>450,000) (NORMAL); PLATELET MORPHOLOGY NORMAL APPEARANCE (NORMAL); RBC MORPHOLOGY (MULTIPLE) 1+ ANISOCYTOSIS (NORMAL)
[2018-04-18] MEDS ORDERED: PHYTONADIONE 10 MG/ML AMP SUBQ STA (18:10)
[2018-04-18 19:49] VITALS: BP 151/119
[2018-04-18] MEDS ORDERED: SODIUM CHLORIDE 0.9% 1,000 ML IV ONE (20:35)
--- NOTE | 2018-04-20 13:11 | ED Physician Documentation ---
History of Present Illness - Stated complaint Stated Complaint: SMALL,SENT BY DOC - Chief complaint Chief Complaint: Neuro - Additonal information Additional information: see other note for H&P/dispo Review of Systems Ten Systems: 10 systems reviewed and negative Constitutional: denies: Fever, Chills Eyes: reports: Photophobia Ears: denies: Ear pain Nose: denies: Rhinorrhea / runny nose, Congestion Cardiac: denies: Chest pain / pressure Respiratory: denies: Cough GI: denies: Abdominal Pain, Nausea, Vomiting, Diarrhea : denies: Dysuria Skin: denies: Rash Musculoskeletal: denies: Neck pain, Back pain Neurologic: denies: Numbness, LOC PD PAST MEDICAL HISTORY - Past Medical History Past Medical History: No Cardiovascular: Congestive heart failure, Hypertension, Atrial fibrillation Respiratory: Asthma, Sleep apnea, CPAP use Neuro: None Endocrine/Autoimmune: Type 2 diabetes GI: GERD SALAD CHEF: None : Incontinence, Renal insuffiency, Nocturia HEENT: None Psych: Depression Musculoskeletal: Osteoarthritis, Chronic back pain Derm: None - Past Surgical History Past Surgical History: Yes Ortho: Spine surgery /SALAD CHEF: Tubal ligation Cardiovascular: Other - Present Medications Home Medications: Ambulatory Orders Medication Instructions Recorded Confirmed Diltiazem HCl [Taztia Xt] 360 mg PO DAILY 06/26/14 04/05/18 Insulin Aspart [Novolog] 4 unit SQ DAILY 06/26/14 04/05/18 Metformin HCl 500 tab PO DAILY 06/26/14 04/05/18 Simvastatin 20 mg PO DAILY 06/26/14 04/05/18 Warfarin [Coumadin] 5 mg PO DAILY 06/26/14 04/05/18 Furosemide 20 mg PO DAILY 09/14/14 04/05/18 Metoprolol Tartrate 25 mg PO DAILY 12/25/14 04/05/18 Lisinopril 10 mg PO BID 01/22/15 04/05/18 Cholecalciferol (Vitamin D3) 400 unit PO DAILY 08/30/15 04/05/18 [Vitamin D] Multivitamin [Multivitamins] 1 each PO DAILY 08/30/15 04/05/18 Prazosin [Minipress] 1 mg PO DAILY 12/09/16 04/05/18 Acetaminophen [Tylenol Extra 500 mg PO DAILY 03/16/17 04/05/18 Strength] Albiglutide [Tanzeum] 30 mg SQ Q7D 03/16/17 04/05/18 Alendronate Sodium [Binosto] 70 mg PO Q7D 03/16/17 04/05/18 Eluxadoline [Viberzi] 75 mg PO DAILY 03/16/17 04/05/18 Fenofibric Acid (Choline) 45 mg PO DAILY 03/16/17 04/05/18 [Trilipix] Ferrous Sulfate 325 mg PO DAILY 03/16/17 04/05/18 Insulin Glargine [Lantus Solostar] 100 unit SQ DAILY 03/16/17 04/05/18 Cephalexin [Keflex] 500 mg PO QID #24 capsule 04/23/17 04/05/18 Ondansetron HCl [Zofran] 4 mg PO Q6H PRN #20 tablet 04/23/17 04/05/18 - Allergies Allergies/Adverse Reactions: Allergies Allergy/AdvReac Type Severity Reaction Status Date / Time estrogens, conjugated Allergy Unknown Verified 04/18/18 15:53 [From Prempro] medroxyprogesterone acetate * Allergy Unknown Verified 04/18/18 15:53 [From Prempro] - Social History Does the pt smoke?: No Smoking Status: Never smoker Does the pt drink ETOH?: No Does the pt have substance abuse?: No - Immunizations Immunizations are current?: Yes - POLST Patient has POLST: No PD ED PE NORMAL - Vitals Vital signs reviewed: Yes - General General: Alert and oriented X 3, No acute distress, Well developed/nourished - HEENT HEENT: PERRL, Ears normal, Moist mucous membranes, Pharynx benign - Neck Neck: Supple, no meningeal sign, No bony TTP - Cardiac Cardiac: RRR, Strong equal pulses - Respiratory Respiratory: No respiratory distress, Clear bilaterally - Abdomen Abdomen: Soft, Non tender, Non distended - Derm Derm: Warm and dry - Neuro Neuro: Alert and oriented X 3, blow mold technician 2-12 intact Eye Opening: Spontaneous Motor: Obeys Commands Verbal: Oriented GCS Score: 15 - Psych Psych: Normal mood, Normal affect Results - Vitals Vitals: Oxygen O2 Source Room air - Labs Labs: Laboratory Tests 04/18/18 04/18/18 04/18/18 17:08 17:08 17:08 WBC 21.3 H RBC 5.32 Hgb 14.1 Hct 45.4 MCV 85.3 MCH 26.6 L MCHC 31.1 L RDW 17.1 H Plt Count 515 H MPV 8.8 Neut # (Auto) Not Reportable Lymph # (Auto) Not Reportable [place] # (Auto) Not Reportable Eos # (Auto) Not Reportable Baso # (Auto) Not Reportable Absolute Nucleated RBC Not Reportable Total Counted 100 Band Neuts % (Manual) 1 Abnorm Lymph % (Manual) 0 Nucleated RBC % Not Reportable Neutrophils # (Manual) 17.7 H Lymphocytes # (Manual) 2.8 Monocytes # (Manual) 0.2 Eosinophils # (Manual) 0.4 Basophils # (Manual) 0.2 H Differential Comment MANUAL DIFFERENTIAL Manual Slide Review Indicated WBC Morphology NORMAL APPEARANCE Platelet Estimate INCREASED (>450,000) Platelet Morphology NORMAL APPEARANCE RBC Morph Micro Appear 1+ ANISOCYTOSIS PT 29.1 H INR 2.6 H Sodium 133 L Potassium 3.9 Chloride 96 L Carbon Dioxide 25 Anion Gap 12.0 BUN 40 H Creatinine 1.3 H Estimated GFR (MDRD) 41 L Glucose 276 H Calcium 9.2 Total Bilirubin 0.4 AST 19 ALT 26 Alkaline Phosphatase 84 Total Protein 8.7 H Albumin 3.7 Globulin 5.0 H Albumin/Globulin Ratio 0.7 L Lipase 30 Departure - Departure Disposition: 02 Transfer Acute Care Hosp Clinical Impression: Intracranial hemorrhage, Anticoagulated on Coumadin Condition: Stable Discharge Date/Time: 04/18/18 22:04
== END 2018-04-18 22:04 | disposition short-term general hospital (02) ==
LOC: ED 15:39
DX: I62.9 Nontraumatic intracranial hemorrhage, unspecified (principal); I11.0 Hypertensive heart disease with heart failure; I50.9 Heart failure, unspecified; I48.91 Unspecified atrial fibrillation; Z79.01 Long term (current) use of anticoagulants; Z79.4 Long term (current) use of insulin; E11.9 Type 2 diabetes mellitus without complications
CPT/HCPCS: 36415; 70450; 80053; 83690; 85025; 85610; 93005; 96365; 96368; 96372; 96375; 99284; 99285; C9132; J0131; J1200; J7040

== ENCOUNTER 2018-05-02 12:42 | Outpatient (CLI) | payer OTHER, MEDICARE ==
--- NOTE | 2018-05-03 15:01 | CT Report ---
Reason: UNSPECIFIED SEQUELAE OF CEREBRAL INFARCTION Procedure Date: 05/02/2018 Accession Number: [id number] / [id number] Procedure: CT - Head W/O CPT Code: FULL RESULT: EXAM: CT HEAD EXAM DATE: 05/02/2018 12:57 PM. CLINICAL HISTORY: UNSPECIFIED SEQUELAE OF CEREBRAL INFARCTION. COMPARISON: HEAD W/O 04/18/2018 4:33 PM. TECHNIQUE: Multiaxial CT images were obtained from the foramen magnum to the vertex. Reformats: Sagittal and coronal. IV contrast: None. In accordance with CT protocol optimization, one or more of the following dose reduction techniques were utilized for this exam: automated exposure control, adjustment of mA and/or KV based on patient size, or use of iterative reconstructive technique. FINDINGS: Parenchyma: Previously seen right temporal parietal mass with surrounding hypodensity now demonstrates an increasing hypodense penumbra with 2 internal foci attenuating blood which measure 0.5 x 1.3 cm and 1.0 x 0.5 cm on image 13. The previously seen central isodensity/hyper density now has the appearance of brain parenchyma. The previously questioned right frontal hypodensity is not definitely redemonstrated. Extraaxial Spaces: No subdural or epidural collections identified. Ventricles: There is a proximally 5 mm of leftward midline shift due to mass-effect from edema/hemorrhage. Sinuses and Orbits: Imaged paranasal sinuses, orbits, and mastoids show no significant abnormality. Bones: No evidence of fracture or calvarial defect. Other: None. IMPRESSION: Interval evolution of findings is most suggestive of interval intraparenchymal hemorrhage. Findings are compatible with evolution of a posterior right MCA infarct with hemorrhagic conversion though an underlying mass is not excluded. RADIA The above findings of interval hemorrhage and increase of edema were discussed with Phillip Fisher by Dr. Rigoberto Soto at 14:59 hrs on 05/03/18.
== END 2018-05-02 12:43 | disposition home or self-care (01) ==
LOC: DI 12:42
PROVIDERS: ATTEND Internal Medicine
DX: I69.30 Unspecified sequelae of cerebral infarction (principal)
CPT/HCPCS: 70450

== ENCOUNTER 2018-05-23 07:46 | Outpatient (CLI) | payer OTHER, MEDICARE ==
--- NOTE | 2018-05-23 13:34 | MRI Report ---
Reason: . Procedure Date: 05/23/2018 Accession Number: [id number] / [id number] Procedure: MRI - Angio Brain W/O (MRA) CPT Code: FULL RESULT: MR ANGIOGRAM HEAD WITHOUT CONTRAST INDICATION: 68-year-old female who presented in late March with headaches. Head CTs performed in late March and early April demonstrate findings suggesting probable infarction with petechial hemorrhage in the right MCA territory. MR angiography has been requested in further evaluation. TECHNIQUE: 3D [id number] MR angiography. COMPARISON: Head CTs from 04/18/2018 and 05/02/2018 FINDINGS: The patient had difficulty holding still for this examination. There is image degradation from patient motion that decreases the diagnostic quality of this study. The internal carotid arteries appear widely patent bilaterally. No obvious ICA aneurysm is identified. The A1 segments of the anterior cerebral arteries appear codominant. On 3D reconstructions there appears to be severe stenosis in the distal A1 segment of the left anterior cerebral artery. This is probably artifactual. No definite anterior communicating artery is demonstrated. Good flow related enhancement is seen in the imaged A2 and distal MARVIN branches. The MCAs are poorly assessed due to motion artifact. Grossly, the M1, M3, and M4 branches are poorly evaluated. Apparent reduction in flow-related enhancement in the proximal V4 segments of both vertebral arteries is unlikely artifactual. The head and distal V4 segments appear widely patent. Flow-related enhancement is identified in the left PICA. No aneurysm at its origin. No right PICA is identified. The right PICA territory may be supplied by the contralateral PICA or ipsilateral AICA (normal anatomical variance). The basilar artery is tortuous, but otherwise unremarkable. Flow-related enhancement is demonstrated in the superior cerebellar arteries and posterior cerebral arteries. No significant appearing stenosis is identified involving the main MAINTENANCE AND UTILITIES SUPERVISOR branches. There appears to be a small right posterior communicating artery. No definite left posterior communicator is seen. No aneurysms are identified arising from the basilar artery trunk or apex. Of note, on axial source images that there is apparent T1 hyperintensity within multiple sulci, over the lateral aspect of the right cerebral convexity (predominately involving the temporal lobe). At this time, the changes probably reflect cortical laminar necrosis rather than representing residual gyral petechial hemorrhage. IMPRESSION: 1. Motion limited study. 2. Apparent severe stenosis in distal A1 segment left MARVIN is probably artifactual. 3. In addition, the apparent symmetric reduction in degree of flow-related enhancement in the proximal V4 segments of both vertebral arteries is probably artifactual. Consider further assessment with CT angiography. 4. Otherwise, unremarkable [place] of [place] MR angiogram. In particular, no significant stenosis is identified in the M1 or proximal M2 branches of the right MCA.
== END 2018-05-23 07:47 | disposition home or self-care (01) ==
LOC: DI 07:46
PROVIDERS: ATTEND Internal Medicine
DX: I69.30 Unspecified sequelae of cerebral infarction (principal)
CPT/HCPCS: 70544

== ENCOUNTER 2018-10-25 08:09 | Outpatient (CLI) | payer OTHER, MEDICARE ==
--- NOTE | 2018-10-26 | Ultrasound Report ---
Reason: ASYMPTOMATIC VARICOSE VEINS OF BILATERAL LOWER EXT Procedure Date: 10/25/2018 Accession Number: [id number] / [id number] Procedure: US - Duplex Ext Veins Bilateral CPT Code: FULL RESULT: EXAM: BILATERAL LOWER EXTREMITY VENOUS ULTRASOUND EXAM DATE: 10/25/2018 09:24 AM. CLINICAL HISTORY: Bilateral lower extremity swelling with asymptomatic varicose veins. COMPARISON: 10/25/2018 9:26 AM. TECHNIQUE: Real-time sonographic vascular imaging was performed by the social media analyst through the lower extremities utilizing both color-flow and Doppler spectral analysis. Multiple manufacturer representative static images were saved for review. FINDINGS: Right: Common Femoral Vein (CFV): Normal. CFV-GSV Junction: Normal. Profunda Femoral Vein (PFV): Normal. Femoral Vein (FV) Prox: Normal. Femoral Vein (FV) Mid: Normal. Femoral Vein (FV) Dist: Normal. Popliteal Vein: Normal. Posterior Tibial Veins: Normal. Peroneal Veins: Normal. Left: Common Femoral Vein (CFV): Normal. CFV-GSV Junction: Normal. Profunda Femoral Vein (PFV): Normal. Femoral Vein (FV) Prox: Normal. Femoral Vein (FV) Mid: Normal. Femoral Vein (FV) Dist: Normal. Popliteal Vein: Normal. Posterior Tibial Veins: Normal. Peroneal Veins: Normal. Other: None. IMPRESSION: No evidence for deep venous thrombosis bilaterally. RADIA
== END 2018-10-25 08:10 | disposition home or self-care (01) ==
LOC: DI 08:09
PROVIDERS: ATTEND Internal Medicine
DX: I83.93 Asymptomatic varicose veins of bilateral lower extremities (principal)
CPT/HCPCS: 93970

== ENCOUNTER 2018-11-03 09:43 | Outpatient (CLI) | payer OTHER, MEDICARE ==
--- NOTE | 2018-11-03 10:48 | Mammography Report ---
Reason: SCREENING MAMMO Procedure Date: 11/03/2018 Accession Number: [id number] / [id number] Procedure: ALLIE - Screening Mammo w/Trip CPT Code: FULL RESULT: EXAM: Screening Mammo w/Trip DATE: 11/03/2018 10:36 AM CLINICAL HISTORY: Screening TECHNIQUE: (B) - Bilateral CC and MLO views were obtained. In addition, bilateral 3-D mammography was performed. COMPARISON: 11/01/2017, 07/13/2016, 06/24/2015 PARENCHYMAL PATTERN: (A) - The breasts demonstrate scattered fibroglandular densities bilaterally. FINDINGS: There are no suspicious masses, calcifications, or areas of distortion. IMPRESSION: Negative examination. BI-RADS category 1. RECOMMENDATION: (ANNUAL) - Recommend routine annual screening mammography. BI-RADS CATEGORY: (1) - Negative. STANDARD QUALIFYING STATEMENTS: 1. This examination was not reviewed with the aid of Computer-Aided Detection (CAD). 2. A negative or benign imaging report should not preclude biopsy if clinically suspicious findings are present. 3. Dense breasts may obscure an underlying neoplasm. 4. This examination was reviewed with the aid of 3D breast imaging (tomosynthesis).
== END 2018-11-03 09:44 | disposition home or self-care (01) ==
LOC: DI 09:43
PROVIDERS: ATTEND Internal Medicine
DX: Z12.31 Encounter for screening mammogram for malignant neoplasm of breast (principal)
CPT/HCPCS: 77063; 77067

== ENCOUNTER 2019-01-24 14:30 | Outpatient (CLI) | payer OTHER, MEDICARE ==
--- NOTE | 2019-01-25 09:08 | DEXA Report ---
Reason: UNSPECIFIED MENOPAUSAL AND PERIMENOPAUSAL DISORDER Procedure Date: 01/24/2019 Accession Number: [id number] / [id number] Procedure: DEX - Dexa Spine and/or Hip CPT Code: FULL RESULT: EXAM: Dexa Spine and/or Hip DATE: 01/24/2019 3:13 PM CLINICAL HISTORY: UNSPECIFIED MENOPAUSAL AND PERIMENOPAUSAL DISORDER. History of osteopenia for follow-up. TECHNIQUE: Dual energy x-ray absorptiometry (DXA) was performed on a [employer] System. Regions measured are the AP Spine, femoral neck, and if needed forearm. COMPARISON: 07/13/2016. In accordance with the International Society for Clinical Densitometry (ISCD) guidelines, data from previous exams may be reanalyzed using current recommendations and techniques. This is done to allow a more accurate basis for comparison with the current study. FINDINGS: The data for the lumbar spine is as follows: BMD (g/cm/cm) T-SCORE Z-SCORE REGION L1 1.213 0.7 1.1 L2 1.474 2.3 2.7 L3 1.533 2.8 3.2 L4 1.153 -0.4 0.1 TOTAL 1.344 1.4 1.8 NOTE: All evaluable vertebrae are used for classification The data for the hip is as follows: BMD (g/cm/cm) T-SCORE Z-SCORE REGION Neck 0.776 -1.9 -1.1 TOTAL 0.930 -0.6 -0.2 NOTE: The femoral neck or total proximal femur, whichever is lowest, is used for classification. DXA RESULTS SUMMARY: Spine SCAN DATE AGE BMD CHANGE VS CHANGE VS PREVIOUS PREVIOUS % 01[age]24/2019 [age] 1.344 0.174* 14.9* 07/13/2016 66.3 1.170 * Denotes significant change at the 95% confidence level. Denotes dissimilar scan types or analysis methods. DXA RESULTS SUMMARY: Hip SCAN DATE AGE BMD CHANGE VS CHANGE VS PREVIOUS PREVIOUS % 01[age]24/2019 [age] 0.930 -0.016 -1.7 07/13/2016 66.3 0.946 * Denotes significant change at the 95% confidence level. Denotes dissimilar scan types or analysis methods. IMPRESSION: THE WHO CLASSIFICATION BASED ON THE INTERNATIONAL REFERENCE STANDARD IS OSTEOPENIA, REFERENCE LEFT FEMORAL NECK. THE FRACTURE RISK IS INCREASED. RECOMMENDATION: Patients with diagnosis of osteoporosis or osteopenia should have regular bone mineral density assessment. For those eligible for Medicare, routine testing is allowed once every 2 years. Testing frequency can be increased for patients who have rapidly progressing disease or for those who are receiving medical therapy to restore bone mass. COMMENT: World Health Organization (WHO) definitions for osteoporosis and osteopenia: NORMAL BMD: T-score at -1.0 or higher, fracture risk is low OSTEOPENIA BMD: T-score between -1.0 and -2.5, fracture risk is increased. OSTEOPOROSIS BMD: T-score at -2.5 or lower, fracture risk is high. National Osteoporosis Foundation recommends: 1. Obtain adequate dietary calcium (at least 1200 mg per day) and vitamin D (400-800 international units per day). 2. Participate, as appropriate, in regular weightbearing and muscle-strengthening exercise. 3. Avoid tobacco use and reduce alcohol and caffeine intake. 4. For more detailed information see the website at www.NOF.org.
== END 2019-01-24 14:31 | disposition home or self-care (01) ==
LOC: DI 14:30
PROVIDERS: ATTEND Internal Medicine
DX: M85.88 Other specified disorders of bone density and structure, other site (principal)
CPT/HCPCS: 77080

== ENCOUNTER 2020-01-19 10:08 | Outpatient (CLI) | payer OTHER, MEDICARE ==
--- NOTE | 2020-01-22 10:34 | Mammography Report ---
BILATERAL DIGITAL SCREENING MAMMOGRAM 3D/2D: 01/19/2020 CLINICAL: Routine screening. Family history of breast cancer. Comparison is made to exams dated: 11/03/2018 mammogram, 11/01/2017 mammogram, 07/13/2016 mammogram, 06/24/2015 mammogram, 08/29/2013 mammogram, and 01/05/2012 mammogram - [facility]. The ti ssue of both breasts is predominantly fatty. There is an irregular equal density asymmetry with coarse calcifications in the left breast at 6 o'cl ock middle depth. There is architectural distortion associated with the asymmetry. Althought this f inding has been present for several years, it appears slightly more prominent and increased in size. No other significant masses, calcifications, or other findings are seen in either breast. IMPRESSION: INCOMPLETE: NEEDS ADDITIONAL IMAGING EVALUATION The irregular equal density asymmetry in the left breast is indeterminate. Additional views with pos sible ultrasound are recommended. This exam was interpreted at Station ID: [id number]. NOTE: For mammograms, a report in lay terms will be sent to the patient. Approximately 15% of breast malignancies will not be visualized mammographically. In the management of a palpable breast mass, a negative mammogram must not discourage biopsy of a clinically suspicious lesion. Electronically Signed By: Uli Byrd M.D. aty/:01/19/2020 13:20:04 ACR BI-RADS Category 0: Incomplete 3340F PARENCHYMAL PATTERN: (F) - The breast(s) demonstrate(s) diffuse fatty replacement. BI-RADS CATEGORY: (0) - 0 Mammo and US [id number] Immediate follow-up LATERALITY: (L)
== END 2020-01-19 10:09 | disposition home or self-care (01) ==
LOC: DI 10:08
PROVIDERS: ATTEND Internal Medicine
DX: Z12.31 Encounter for screening mammogram for malignant neoplasm of breast (principal); R92.8 Other abnormal and inconclusive findings on diagnostic imaging of breast; Z80.3 Family history of malignant neoplasm of breast
CPT/HCPCS: 77063; 77067

== ENCOUNTER 2020-02-17 04:04 | Outpatient (CLI) | payer OTHER, MEDICARE | END 2020-02-17 04:05 | disposition home or self-care (01) | LOC: EMS 04:04 | PROVIDERS: ATTEND Surgery | DX: M54.5 Low back pain (principal); R42 Dizziness and giddiness; R11.0 Nausea | CPT/HCPCS: A0425; A0427 ==

== ENCOUNTER 2020-02-17 04:23 | Inpatient (IN) | payer OTHER, MEDICARE ==
--- NOTE | 2020-02-17 04:29 | ED Physician Documentation ---
History of Present Illness - Stated complaint Stated Complaint: BACK PAIN/ DIZZY - History obtained from History obtained from: Patient - Additonal information Additional information: Patient is a 69-year-old female brought in by ambulance with a chief complaint of feeling lightheaded and SOB. she reports she was lying in bed and was having diffuse back pain and discomfort was tossing and turning and then she felt an episode of dizziness without facial droop or unilateral weakness. She denies any syncope reports she is able to ambulate but feels lightheaded and weak. Denies any recent fevers. 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 Review of Systems Constitutional: reports: Reviewed and negative Eyes: reports: Reviewed and negative Ears: reports: Reviewed and negative Nose: reports: Reviewed and negative Throat: reports: Reviewed and negative Cardiac: reports: Reviewed and negative Respiratory: reports: Reviewed and negative GI: reports: Reviewed and negative : reports: Reviewed and negative Skin: reports: Reviewed and negative Musculoskeletal: reports: Back pain Neurologic: reports: Generalized weakness Psychiatric: reports: Reviewed and negative Endocrine: reports: Reviewed and negative Immunocompromised: reports: Reviewed and negative PD PAST MEDICAL HISTORY - Past Medical History Cardiovascular: Congestive heart failure, Hypertension, Atrial fibrillation Respiratory: Asthma, Sleep apnea, CPAP use Neuro: None Endocrine/Autoimmune: Type 2 diabetes GI: GERD SOLDERER BARREL RIBS: None : Incontinence, Renal insuffiency, Nocturia HEENT: None Psych: Depression Musculoskeletal: Osteoarthritis, Chronic back pain Derm: None - Past Surgical History Past Surgical History: Yes Ortho: Spine surgery /SOLDERER BARREL RIBS: Tubal ligation Cardiovascular: Other - Present Medications Home Medications: Ambulatory Orders Medication Instructions Recorded Confirmed Multivitamin [Multivitamins] 1 each PO DAILY 08/30/15 02/17/20 Acetaminophen [Tylenol Extra 500 mg PO DAILY PRN 03/16/17 02/17/20 Strength] ALPRAZolam [Alprazolam] 0.25 mg PO DAILY 02/17/20 02/17/20 Atorvastatin Calcium [Lipitor] 80 mg PO DAILY 02/17/20 02/17/20 Doxylamine Succinate [Unisom] 25 mg PO DAILY PRN 02/17/20 02/17/20 Empagliflozin [Jardiance] 10 mg PO DAILY 02/17/20 02/17/20 Fenofibric Acid (Choline) 45 mg PO DAILY 02/17/20 02/17/20 [Fenofibric Acid] Gabapentin [Neurontin] 300 mg PO DAILY 02/17/20 02/17/20 Insulin Aspart Prot/Insuln Asp 0 units SUBQ BID 02/17/20 02/17/20 [Novolog Mix 70-30 Flexpen] Latanoprost [Xalatan] 1 drops EACHEYE QPM 02/17/20 02/17/20 Lisinopril [Zestril] 20 mg PO BID 02/17/20 02/17/20 Loperamide [Imodium] 2 mg PO DAILY PRN 02/17/20 02/17/20 Methenamine/Sodium Salicylate [Azo 1 tab PO DAILY PRN 02/17/20 02/17/20 Urinary Tract Defense Tab] Prazosin HCl 1 mg PO QPM 02/17/20 02/17/20 Rivaroxaban [Xarelto] 20 mg PO QPM 02/17/20 02/17/20 Sertraline HCl 25 mg PO DAILY 02/17/20 02/17/20 bisacodyL [Dulcolax] 5 mg PO DAILY PRN 02/17/20 02/17/20 dilTIAZem HCl [Diltiazem 24Hr ER 240 mg PO DAILY 02/17/20 02/17/20 (Cd)] - Allergies Allergies/Adverse Reactions: Allergies Allergy/AdvReac Type Severity Reaction Status Date / Time estrogens, conjugated Allergy Unknown Verified 02/17/20 04:53 [From Prempro] medroxyprogesterone acetate * Allergy Unknown Verified 02/17/20 04:53 [From Prempro] - Social History Does the pt smoke?: No Smoking Status: Never smoker Does the pt drink ETOH?: No Does the pt have substance abuse?: No - Immunizations Immunizations are current?: Yes - POLST Patient has POLST: No PD ED PE NORMAL - Vitals Vital signs reviewed: Yes - General General: Alert and oriented X 3, No acute distress, Well developed/nourished - HEENT HEENT: PERRL - Neck Neck: Supple, no meningeal sign, No JVD - Cardiac Cardiac: No murmur, Strong equal pulses, Other (Tachycardic and irregularly irregular) - Respiratory Respiratory: No respiratory distress, Clear bilaterally - Abdomen Abdomen: Normal bowel sounds, Soft, Non tender, Non distended, No organomegaly, Other (No midline abdominal pulsatile mass) - Female Female : Deferred - Rectal Rectal: Deferred - Back Back: No CVA TTP, No spinal TTP - Derm Derm: Normal color, Warm and dry, No rash - Extremities Extremities: No deformity, No tenderness to palpate, Normal ROM s pain, No calf tenderness / cord - Neuro Neuro: Alert and oriented X 3, hand spring former 2-12 intact, No motor deficit, No sensory deficit, Normal speech - Psych Psych: Normal mood, Normal affect Results - Vitals Vitals: Vital Signs - 24 hr 02/17/20 02/17/20 02/17/20 04:25 04:45 05:11 Temperature 37.3 C Heart Rate 73 145 H 143 H Respiratory 18 16 16 Rate Blood Pressure 182/116 H 154/103 H 149/95 H O2 Saturation 97 97 96 02/17/20 02/17/20 05:22 06:00 Temperature Heart Rate 109 H 124 H Respiratory 16 24 Rate Blood Pressure 181/98 H 157/113 H O2 Saturation 96 95 Oxygen O2 Source Room air - EKG (time done) 04:29 Rate: Other (no stemi, a fib rate of 138) - Labs Labs: Laboratory Tests 02/17/20 02/17/20 02/17/20 05:15 05:15 05:15 WBC 11.9 H RBC 5.44 H Hgb 13.6 Hct 45.0 MCV 82.7 MCH 25.0 L MCHC 30.2 L RDW 18.4 H Plt Count 422 MPV 10.6 Neut # (Auto) 9.8 H Lymph # (Auto) 1.4 L [place] # (Auto) 0.4 Eos # (Auto) 0.1 Baso # (Auto) 0.0 Absolute Nucleated RBC 0.00 Nucleated RBC % 0.0 PT 31.2 H INR 3.0 H APTT 54.3 H Sodium 139 Potassium 3.8 Chloride 106 Carbon Dioxide 23 Anion Gap 10.0 BUN 19 Creatinine 1.0 Estimated GFR (MDRD) 55 L Glucose 233 H Estimat Average Glucose Hemoglobin A1c % Lactic Acid Calcium 8.8 Magnesium 1.9 Total Bilirubin 0.4 AST 19 ALT 21 Alkaline Phosphatase 65 Total Creatine Kinase 52 Troponin I High Sens B-Natriuretic Peptide Total Protein 8.6 H Albumin 3.9 Globulin 4.7 H Albumin/Globulin Ratio 0.8 L Lipase 26 TSH Urine Color Urine Clarity Urine pH Ur Specific [place] Urine Protein Urine Glucose (UA) Urine Ketones Urine Occult Blood Urine Nitrite Urine Bilirubin Urine Urobilinogen Ur Leukocyte Esterase Ur Microscopic Review Urine Culture Comments Urine Opiates Screen Ur Oxycodone Screen Urine Methadone Screen Ur Propoxyphene Screen Ur Barbiturates Screen Ur Tricyclics Screen Ur Phencyclidine Scrn Ur Amphetamine Screen U Methamphetamines Scrn U Benzodiazepines Scrn Urine Cocaine Screen U Cannabinoids Screen Ethyl Alcohol < 5.0 02/17/20 02/17/20 02/17/20 05:15 05:15 05:15 WBC RBC Hgb Hct MCV MCH MCHC RDW Plt Count MPV Neut # (Auto) Lymph # (Auto) [place] # (Auto) Eos # (Auto) Baso # (Auto) Absolute Nucleated RBC Nucleated RBC % PT INR APTT Sodium Potassium Chloride Carbon Dioxide Anion Gap BUN Creatinine Estimated GFR (MDRD) Glucose Estimat Average Glucose Hemoglobin A1c % Lactic Acid 1.0 Calcium Magnesium Total Bilirubin AST ALT Alkaline Phosphatase Total Creatine Kinase Troponin I High Sens B-Natriuretic Peptide 155 H Total Protein Albumin Globulin Albumin/Globulin Ratio Lipase TSH 3.17 Urine Color Urine Clarity Urine pH Ur Specific [place] Urine Protein Urine Glucose (UA) Urine Ketones Urine Occult Blood Urine Nitrite Urine Bilirubin Urine Urobilinogen Ur Leukocyte Esterase Ur Microscopic Review Urine Culture Comments Urine Opiates Screen Ur Oxycodone Screen Urine Methadone Screen Ur Propoxyphene Screen Ur Barbiturates Screen Ur Tricyclics Screen Ur Phencyclidine Scrn Ur Amphetamine Screen U Methamphetamines Scrn U Benzodiazepines Scrn Urine Cocaine Screen U Cannabinoids Screen Ethyl Alcohol 02/17/20 02/17/20 02/17/20 05:15 05:15 06:20 WBC RBC Hgb Hct MCV MCH MCHC RDW Plt Count MPV Neut # (Auto) Lymph # (Auto) [place] # (Auto) Eos # (Auto) Baso # (Auto) Absolute Nucleated RBC Nucleated RBC % PT INR APTT Sodium Potassium Chloride Carbon Dioxide Anion Gap BUN Creatinine Estimated GFR (MDRD) Glucose Estimat Average Glucose 171 H Hemoglobin A1c % 7.6 H Lactic Acid Calcium Magnesium Total Bilirubin AST ALT Alkaline Phosphatase Total Creatine Kinase Troponin I High Sens 7.0 B-Natriuretic Peptide Total Protein Albumin Globulin Albumin/Globulin Ratio Lipase TSH Urine Color YELLOW Urine Clarity CLEAR Urine pH 7.0 Ur Specific [place] 1.020 Urine Protein TRACE Urine Glucose (UA) >=1000 H Urine Ketones NEGATIVE Urine Occult Blood TRACE-INTA Urine Nitrite NEGATIVE Urine Bilirubin NEGATIVE Urine Urobilinogen 0.2 (NORMAL) Ur Leukocyte Esterase NEGATIVE Ur Microscopic Review NOT INDICATED Urine Culture Comments NOT INDICATED Urine Opiates Screen NEGATIVE Ur Oxycodone Screen NEGATIVE Urine Methadone Screen NEGATIVE Ur Propoxyphene Screen NEGATIVE Ur Barbiturates Screen NEGATIVE Ur Tricyclics Screen NEGATIVE Ur Phencyclidine Scrn NEGATIVE Ur Amphetamine Screen NEGATIVE U Methamphetamines Scrn NEGATIVE U Benzodiazepines Scrn POSITIVE H Urine Cocaine Screen NEGATIVE U Cannabinoids Screen POSITIVE H Ethyl Alcohol PD MEDICAL DECISION MAKING - ED course Complexity details: reviewed old records, reviewed results, re-evaluated patient, considered differential (Hypertensive emergency, hypertensive urgency, atrial fibrillation with RVR), d/w patient, d/w family, d/w interventional sale consultant (dr. ordonez. hospitalist. will admit to ICU for a fib RVR, hypertensive urgency) - Consults Consults: Discussed case with (dr. ordonez. hospitalist would like angiogram to rule out dissection/Aneurysm. Imaging will be ordered, performed and the patient will be admitted to the ICU.) - Critical Care Time(min): 30 Time Includes: Direct patient care, Review records, Reassess patient, Document care, Coordinate care, Medical consult Data interpretation: Labs Procedures included in critical care time: Peripheral IV Procedures excluded from critical care time: EKG Departure - Departure Disposition: 66 [facility] DC/Xfer Clinical Impression: Atrial fibrillation with RVR, Hypertensive urgency Condition: Stable Discharge Date/Time: 02/17/20 07:15
[2020-02-17] MEDS: SODIUM CHLORIDE 0.9% 1,000 ML IV STA ×3 (04:35→18:00)
[2020-02-17] MEDS ORDERED: DILTIAZEM 50 MG/10 ML VIAL IVP ONE (04:38)
[2020-02-17 05:22] LABS: BASOPHILS % (AUTO) 0.3 %; EOSINOPHILS # (AUTO) 0.1 10^3/uL (0.0-0.7); HGB - HEMOGLOBIN 13.6 g/dL (12.0-16.0); LYMPHOCYTES # (AUTO) 1.4 10^3/uL (1.5-3.5); LYMPHOCYTES % (AUTO) 11.9 %; MEAN CORPUSCULAR HGB CONC 30.2 g/dL (32.0-36.0); MEAN CORPUSCULAR VOLUME 82.7 fL (81.0-99.0); MEAN PLATELET VOLUME 10.6 fL (7.9-10.8); MONOCYTES # (AUTO) 0.4 10^3/uL (0.0-1.0); MONOCYTES % (AUTO) 3.7 %; NEUTROPHILS # (AUTO) 9.8 10^3/uL (1.5-6.6); NEUTROPHILS % (AUTO) 82.5 %; PLT - PLATELET COUNT 422 10^3/uL (130-450); RED BLOOD COUNT 5.44 10^6/uL (4.20-5.40); RED CELL DISTRIBUTION WIDTH 18.4 % (12.0-15.0); WHITE BLOOD COUNT 11.9 x10^3/uL (4.8-10.8)
[2020-02-17 05:34] LABS: ALBUMIN 3.9 g/dL (3.2-5.5); ALBUMIN/GLOBULIN RATIO 0.8 (1.0-2.2); ALKALINE PHOSPHATASE 65 IU/L (42-121); ALT ALANINE AMINOTRANSFERASE 21 IU/L (10-60); AST ASPARTATE AMINOTRANSFERASE 19 IU/L (10-42); BILIRUBIN,TOTAL 0.4 mg/dL (0.2-1.0); BUN - BLOOD UREA NITROGEN 19 mg/dL (6-20); CALCIUM 8.8 mg/dL (8.5-10.3); CARBON DIOXIDE - CO2 23 mmol/L (21-32); CHLORIDE 106 mmol/L (101-111); CK- CREATINE KINASE 52 IU/L (22-269); GLUCOSE 233 mg/dL (70-100); LIPASE 26 U/L (22-51); MAGNESIUM 1.9 mg/dL (1.7-2.8); SODIUM 139 mmol/L (135-145); TOTAL PROTEIN 8.6 g/dL (6.7-8.2)
[2020-02-17 05:35] LABS: PT - PROTHROMBIN TIME 31.2 secs (9.9-12.6)
[2020-02-17 05:43] LABS: PARTIAL THROMBOPLASTIN TIME 54.3 secs (24.9-33.3)
[2020-02-17] MEDS ORDERED: DILTIAZEM 125 MG in DEXTROSE 5% 100 ML IV STA (06:04)
[2020-02-17] MEDS ORDERED: DILTIAZEM 50 MG/10 ML VIAL ONE (06:19)
[2020-02-17] MEDS ORDERED: SODIUM CHLORIDE FLUSH 0.9% 10 ML SYRINGE IVP PRN (06:27)
[2020-02-17 06:32] LABS: MUDS CUTOFF CONCENTRATIONS CUTOFF CONC BELOW:
[2020-02-17 06:33] LABS: BILIRUBIN,URINE NEGATIVE (NEGATIVE); GLUCOSE, URINE (UA) >=1000 mg/dL (NEGATIVE); KETONES,URINE (UA) NEGATIVE (NEGATIVE); LEUKOCYTE ESTERASE, URINE NEGATIVE (NEGATIVE); NITRITE,URINE NEGATIVE (NEGATIVE); OCCULT BLOOD,URINE TRACE-INTA (NEGATIVE); PROTEIN,URINE TRACE mg/dL (NEGATIVE); UROBILINOGEN,URINE 0.2 (NORMAL) E.U./dL (NORMAL)
[2020-02-17 06:34] LABS: CLARITY,URINE CLEAR (CLEAR)
[2020-02-17 06:44] LABS: AMPHETAMINE SCREEN,URINE NEGATIVE (NEGATIVE); BENZODIAZEPINES SCREEN, URINE POSITIVE (NEGATIVE); COCAINE SCREEN URINE NEGATIVE (NEGATIVE); METHADONE SCREEN, URINE NEGATIVE (NEGATIVE); METHAMPHETAMINES SCREEN, URINE NEGATIVE (NEGATIVE); OPIATE SCREEN, URINE NEGATIVE (NEGATIVE); OXYCODONE SCREEN, URINE NEGATIVE (NEGATIVE); PROPOXYPHENE SCREEN, URINE NEGATIVE (NEGATIVE); TRICYCLIC ANTIDEPRESSANT,URINE NEGATIVE (NEGATIVE)
[2020-02-17] MEDS ORDERED: IOVERSOL 320 100 ML VIAL IVP ONE ×2 (06:58→07:29)
[2020-02-17] MEDS: DILTIAZEM 125 MG in DEXTROSE 5% 100 ML IV SCH ×2 (07:00→17:10)
[2020-02-17] MEDS: INSULIN ASPART 300 UNIT/3 ML PEN SUBQ SCH ×4 (08:20→20:56)
--- NOTE | 2020-02-17 08:33 | CT Report ---
PROCEDURE: ANGIO ABDOMEN/PELVIS W INDICATIONS: abd back pain hypertension CONTRAST: IV CONTRAST: Optiray 320 ml: 100 PO CONTRAST: *NO PO CONTRAST TECHNIQUE: After the administration of intravenous contrast, 2 and 5 mm sections acquired from the diaphragm to the iliac crests. 3-dimensional maximum intensity projection (MIP) coronal and sagittal reformats, a nd/or 3-dimensional volume rendering reformatting was then performed. For radiation dose reduction, the following was used: automated exposure control, adjustment of mA and/or kV according to patient size. COMPARISON: Correlation is made with the accompanying chest CT angiogram as well as noncontrast head CT, 02/17/2020. Comparison is made to prior abdomen and pelvis CT 08/17/2014 FINDINGS: Image quality: Excellent. Extravascular tissues: Lung bases are clear. Heart size is normal. A moderate hiatal hernia is seen . Liver and spleen are normal in size and enhancement. Gallbladder is unremarkable by CT Biliary sy stem is non dilated. Pancreas enhances normally. No adrenal nodules. The left kidney is mildly to moderately atrophic. At the inferior pole of the left kidney, there is a nonobstructing stone seen, as on series 2 image 22 that measures 8 mm. Both kidneys demonstrate area s of focal cortical loss, left worse than right. There is no hydronephrosis. Focal mild wall thickening is seen involving the distal descending colon/proximal sigmoid colon. Dive rticulosis can be seen within this region. No free air is seen. No focal fluid collections are seen t o suggest abscess. Non-opacified bowel loops otherwise demonstrate normal wall thickness and caliber. No significant free fluid can be seen. No retroperitoneal or mesenteric adenopathy. No ventral hernias. No suspicious bony abnormalities. No vertebral body compression fractures. Age-appropriate degenera tive changes are seen, which are worst at the L2-L3 level and the L5-S1 level. The urinary bladder is enlarged. Calcified uterine fibroids are seen. Abdominal aorta: The abdominal aorta demonstrates prominent atherosclerotic calcification and irregu larity. No findings of aneurysm, stenosis, or dissection can be seen. Mesenteric arteries: The mesenteric arteries demonstrate vascular calcification at their origins, wi thout a hemodynamically significant stenosis. The mesenteric arteries are patent. Renal arteries: Atherosclerotic irregularity is seen. No imaging record significant stenosis can be seen. Accessory renal arteries can be seen on both sides, superior to the normal renal arteries. IMPRESSION: No significant acute arterial abnormality is seen. Atherosclerotic changes are noted. Mild diverticulitis is seen of the distal descending colon/proximal sigmoid colon. No findings of per foration or abscess can be seen. Mildly atrophic left kidney. Areas of focal volume loss can be seen involving each kidney, which is a ttributed to cortical scarring. Please correlate with prior episodes of infarction or infection. Enlarged urinary bladder. Please correlate with urinary retention. Incidental note is made of: Moderate hiatal hernia Bilateral accessory renal arteries Focal degenerative change at L2-L3 and L5-S1. Calcified uterine fibroids Note: No significant discrepancy from the preliminary report. Reviewed by: Sim Mancini MD on 02/17/2020 7:32 AM VIANNEY Approved by: Sim Mancini MD on 02/17/2020 7:32 AM VIANNEY Station ID: [id number]
--- NOTE | 2020-02-17 08:36 | CT Report ---
PROCEDURE: ANGIO CHEST W/WO INDICATIONS: chest and back pain CONTRAST: IV CONTRAST: Optiray 320 ml: 100 PO CONTRAST: *NO PO CONTRAST TECHNIQUE: After the administration of intravenous contrast, 2 mm thick sections acquired from the pulmonary api john to the posterior costophrenic angles. 3-dimensional maximum intensity projection (MIP) coronal a nd sagittal reformats were then acquired through the thorax. For radiation dose reduction, the follow ing was used: automated exposure control, adjustment of mA and/or kV according to patient size. COMPARISON: Correlation is made with abdomen and pelvis angiogram as well as head CT, 02/17/2020 FINDINGS: Image quality: Excellent. Pulmonary arteries: Pulmonary arteries are normal in size, and demonstrate no intraluminal filling d efects to suggest central pulmonary embolism. Lungs and pleura: Lungs are clear. No pleural effusions or pneumothorax. Central and peripheral ai rways are patent. Mediastinum: Heart size is mildly enlarged, without pericardial effusion. Moderate coronary artery calcification is seen. No mediastinal or hilar adenopathy. Thoracic aorta is normal in caliber and e nhancement. To the limits of this study that is optimized for evaluation of the pulmonary arteries, n o findings of aortic dissection can be seen. Esophagus is normal in caliber.There is a moderate hiata l hernia. Bones and chest wall: No suspicious bony lesions. Ribs and thoracic spine appear intact throughout. The thyroid is normal. No axillary or supraclavicular adenopathy. Abdomen: Visualized upper abdominal solid organs appear normal in the early arterial phase of enhanc ement. IMPRESSION: Negative for pulmonary embolism. No findings of aortic dissection. Mild cardiomegaly. Incidental note is made of: Moderate coronary artery calcification Moderate hiatal hernia Note: No significant discrepancy from the preliminary report. Reviewed by: Sim Mancini MD on 02/17/2020 7:35 AM VIANNEY Approved by: Sim Mancini MD on 02/17/2020 7:35 AM AKMARILOU Station ID: [id number]
--- NOTE | 2020-02-17 08:41 | CT Report ---
PROCEDURE: HEAD WO INDICATIONS: dizzy TECHNIQUE: Noncontrast 4.5 mm thick angled axial sections acquired from the foramen magnum to the vertex. For r adiation dose reduction, the following was used: automated exposure control, adjustment of mA and/or kV according to patient size. COMPARISON: Prior head CT examinations 04/18/2018, 05/02/2018 FINDINGS: Image quality: Excellent. CSF spaces: Basal cisterns are patent. No extra-axial fluid collections. There is ex vacuo dilatati on seen of the posterior horn of the right lateral ventricle. No hydrocephalus is seen. Brain: There is a remote right temporoparietal infarction seen, with volume loss and encephalomalaci a. Generalized brain parenchymal volume loss and chronic small vessel ischemic change can be seen. No midline shift. No intracranial masses or hemorrhage. López-white matter interface is normal. Skull and face: Calvarium and visualized facial bones are intact, without suspicious lesions. Sinuses: There is a mild amount of fluid seen within the left mastoid air cells. Visualized sinuses and mastoids are otherwise clear. IMPRESSION: No significant intracranial abnormality is seen. Remote right temporoparietal infarction. Age-appropriate brain parenchymal volume loss and chronic small vessel ischemic change can be seen. Left mastoid air cell fluid can be seen. Note: No significant discrepancy from the preliminary report. Reviewed by: Sim Mancini MD on 02/17/2020 7:40 AM VIANNEY Approved by: Sim Mancini MD on 02/17/2020 7:40 AM VIANNEY Station ID: [id number]
[2020-02-17] MEDS: PANTOPRAZOLE 40 MG TABLET PO SCH (08:55)
--- NOTE | 2020-02-17 10:14 | XRAY Report ---
PROCEDURE: Chest 1 View X-Ray INDICATIONS: Shortness of breath TECHNIQUE: One view of the chest was acquired. COMPARISON: 06/26/2014, 06/25/2014. Correlation is also made with the subsequently performed chest CT, 02/17/2020 FINDINGS: Surgical changes and devices: None. Lungs and pleura: No pleural effusions or pneumothorax. Lungs are clear. Elevation of the right he midiaphragm can be seen. Mediastinum: Mediastinal contours appear normal. Heart size is mildly enlarged. Bones and chest wall: No suspicious bony lesions. Overlying soft tissues appear unremarkable. IMPRESSION: Stable cardiomegaly. Clear lungs. Elevation of the right hemidiaphragm is seen. If clinically appropriate, a dedicated fluoroscopic "sn iff test" could be considered for evaluation of hemidiaphragm paralysis. Note: No significant discrepancy from the preliminary report. Reviewed by: Sim Mancini MD on 02/17/2020 9:13 AM VIANNEY Approved by: Sim Mancini MD on 02/17/2020 9:13 AM VIANNEY Station ID: [id number]
[2020-02-17] MEDS: SODIUM CHLORIDE FLUSH 0.9% 10 ML SYRINGE IVP SCH ×2 (11:00→16:55)
--- NOTE | 2020-02-17 11:22 | PHARMACY PROGRESS NOTE ---
- Best Possible Medication History Admit Date and Time: 02/17/20 0627 Processed by: Pharmacy Medication History completed: Yes Patient Interview: Completed Secondary Source(s): Prescription bottles, Insurance records As the person ultimately responsible for medication therapy, providers are able to order a medication from an existing home medication list in [facility] via the "Reconcile Routine" prior to Confirmation of that medication by customer support specialist. Such practice is discouraged except when the physician, in their clinical judgment, deems that a medical need exists for a medication without regard to previous use.
[2020-02-17] MEDS: metroNIDAZOLE 500 MG/100 ML 500 MG/100 ML BAG IV SCH ×2 (12:20→19:42)
[2020-02-17] MEDS ORDERED: ACETAMINOPHEN 500 MG TABLET PO PRN (13:35)
[2020-02-17] MEDS ORDERED: bisacodyL 5 MG TABLET PO PRN (13:35)
[2020-02-17] MEDS: CIPROFLOXACIN 400 MG/200 ML 400 MG/200 ML BAG IV SCH (13:35)
[2020-02-17 13:42] LABS: HEMOGLOBIN A1c% 7.6 % (4.27-6.07)
[2020-02-17] MEDS: RIVAROXABAN 10 MG TABLET PO SCH (17:00)
[2020-02-17] MEDS ORDERED: SODIUM CHLORIDE 0.9% 1,000 ML IV ONE (17:06)
[2020-02-17] MEDS: ONDANSETRON 4 MG/2 ML VIAL IVP PRN (17:46)
--- NOTE | 2020-02-17 17:46 | HISTORY & PHYSICAL EXAMINATION ---
DATE OF SERVICE: 02/17/2020 Physician: Nazia Sánchez MD HISTORY OF PRESENT ILLNESS: This is a 69-year-old white female with history of obesity, hemorrhagic stroke approximately 4 years ago, history of hypertension, atrial fibrillation, sleep apnea on CPAP, type 2 diabetes, heart failure, DJD with chronic back pain. The patient developed rather rapid onset of diffuse lower abdominal pain that was not crampy and not associated with urinating or defecating or with meals. It was not positional. There was no nausea or vomiting, fever or diarrhea. She presented to the hospital with this complaint and also described back pain. In the emergency room, she was found to have atrial fibrillation with a rapid ventricular rate and was started on an IV diltiazem drip. Workup for the abdominal pain and back pain was also done. She underwent chest x-ray, which showed cardiomegaly, but clear lung doty. She had a CTA of the chest as well as abdomen and pelvis to rule out abdominal aortic aneurysm or dissection and the findings were that of hiatal hernia, no aortic aneurysm or dissection, diverticulosis of the colon and diverticulitis of the distal descending colon and proximal sigmoid colon without perforation or abscess. Also, incidental findings of a very enlarged urinary bladder, atherosclerosis of the renal arteries and mesenteric arteries, normal pulmonary artery size, calcification of the coronary arteries. The patient is being admitted for management of abdominal pain, probably related to diverticulitis plus urinary bladder distention and for atrial fibrillation with rapid ventricular response. PAST MEDICAL HISTORY: Obesity, diabetes, sleep apnea, atrial fibrillation, hemorrhagic stroke, atrial fibrillation history, CHF, history. ALLERGIES: ESTROGENS THAT ARE CONJUGATED AND MEDROXYPROGESTERONE. MEDICATIONS: 1. Tylenol p.r.n. 2. Alprazolam 0.25 mg daily. 3. Lipitor 80 mg every night. 4. Dulcolax suppository p.r.n. 5. Diltiazem CD 240 mg daily. 6. Unisom p.r.n. 7. Jardiance 10 mg p.o. daily. 8. Fenofibric acid 45 mg daily. 9. Gabapentin 300 mg daily. 10. Insulin 70/30 NovoLog mix with unknown dose subcutaneously b.i.d. 11. Xalatan eyedrops every night. 12. Lisinopril 20 mg b.i.d. 13. Imodium p.r.n. 14. Azo Urinary Defense tab 1 tablet daily p.r.n. 15. Multivitamin daily. 16. Prazosin 1 mg p.o. every night. 17. Xarelto 20 mg every evening. 18. Sertraline 25 mg daily. FAMILY HISTORY: Both parents of complications of alcoholism, one of a stroke that she can remember. Her brother of a ruptured aortic aneurysm. She has 2 children, 1 is a special needs child. SOCIAL HISTORY: She lives with her . The son who has special needs lives independently, but they check on him closely. The patient has no history of smoking. Drinks no alcohol whatsoever. No illicit drug use history. REVIEW OF SYSTEMS: The patient has never had diverticulitis before. She recently saw her director women and was told everything was stable. She recently saw her neurologist and was told everything is stable. A comprehensive review of system was performed and the pertinent positives are listed. The rest are negative. PHYSICAL EXAM: GENERAL: Obese white female who is currently in no distress. She has a resting tremor of her lower jaw. VITAL SIGNS: Blood pressure 160/109 and current heart rate 110-120 in atrial fibrillation, afebrile, room air saturation 95%. HEENT: Unremarkable. Oral mucosa is moist. NECK: Without JVD in a vertical position. CHEST: Clear. HEART: Irregular, tachycardic, distant heart sounds. No murmurs are heard. ABDOMEN: Obese with a large pannus. She has diminished bowel sounds. There is no guarding or rebound. No organomegaly and no masses are palpable. EXTREMITIES: No clubbing, cyanosis or edema. NEUROLOGIC: Shows no resting tremor, but otherwise grossly intact motor exam. LABORATORY DATA: Normal electrolytes. Normal BUN and creatinine. Normal lactic acid of 1.0. Normal magnesium 1.9. Normal liver tests. Troponin high sensitivity is 7.0. BNP 155. TSH normal at 3.17. White blood count 11.9, hemoglobin 13.6, platelet count normal at 422. INR is elevated at 3.0, but this is not accurate in a patient on Xarelto. Urinalysis is unremarkable except for high glucose. Nasal swab for MRSA is negative. Her urine drug screen was positive for benzodiazepine and for cannabinoids. Her serum alcohol level was not present. EKG: Atrial fibrillation with a rapid rate of 198, low voltage in the limb leads, diffuse nonspecific ST and T-wave changes. We have no old EKG available for comparison. IMPRESSION/DIAGNOSES 1. Abdominal pain, which is probably from urinary distention and diverticulitis. 2. Diverticulitis. 3. Urinary retention 4. Atrial fibrillation with rapid ventricular response. 5. Hypertensive urgency. 6. Insulin-dependent type 2 diabetes. 7. Cardiomegaly. 8. Sleep apnea, on CPAP. 9. Stroke; hemorrhagic by her report, however the patient is on Xarelto PLAN: Admit the patient to the ICU on telemetry. Begin the IV diltiazem drip for heart rate management. Begin IV hydration gently and start bowel rest for the diverticulitis with pureed diet, advancing to a low-fiber diet as she tolerates. Begin empiric IV antibiotics for diverticulitis using Cipro and Flagyl. Continue her usual prehospital medications. Order a CPAP device to be used while here. Add IV hydralazine p.r.n. for hypertensive urgency treatment. Begin insulin sliding scale to cover her glucose checks for her diabetes management. Consider a Miner catheter if she continues to have urinary retention with high bladder scan volume. CODE STATUS: FULL CODE. DEEP VENOUS: PROPHYLAXIS: Pharmacotherapy with her Xarelto. ATTESTATION: The patient is expected to be discharged or transferred to another facility within 96 hours: Yes. TD: 02/17/2020 13:45 OUMAR
[2020-02-17] MEDS: LATANOPROST 0.005% OPHTH DROPS EACHEYE SCH (20:53)
[2020-02-18] MEDS: CIPROFLOXACIN 400 MG/200 ML 400 MG/200 ML BAG IV SCH ×2 (00:26→12:40)
[2020-02-18] MEDS: SODIUM CHLORIDE FLUSH 0.9% 10 ML SYRINGE IVP SCH ×4 (00:27→17:07)
[2020-02-18] MEDS: ACETAMINOPHEN 325 MG TABLET PO PRN (01:01)
[2020-02-18] MEDS: diphenhydrAMINE 25 MG CAPSULE PO PRN ×2 (01:02→20:31)
[2020-02-18] MEDS: DILTIAZEM 125 MG in DEXTROSE 5% 100 ML IV SCH ×3 (01:05→19:17)
[2020-02-18] MEDS: NYSTATIN POWDER 15 GM TOP SCH ×3 (03:35→20:30)
[2020-02-18] MEDS: METOPROLOL 5 MG/5 ML VIAL IVP PRN (03:42)
[2020-02-18] MEDS: metroNIDAZOLE 500 MG/100 ML 500 MG/100 ML BAG IV SCH ×3 (03:43→20:35)
[2020-02-18] MEDS: ONDANSETRON 4 MG/2 ML VIAL IVP PRN ×2 (03:51→09:12)
[2020-02-18 05:07] LABS: CALCIUM 8.4 mg/dL (8.5-10.3); CREATININE 0.9 mg/dL (0.4-1.0)
[2020-02-18 05:17] LABS: BASOPHILS # (AUTO) 0.1 10^3/uL (0.0-0.1); BASOPHILS % (AUTO) 0.4 %; EOSINOPHILS # (AUTO) 0.1 10^3/uL (0.0-0.7); EOSINOPHILS % (AUTO) 0.6 %; HGB - HEMOGLOBIN 13.6 g/dL (12.0-16.0); LYMPHOCYTES # (AUTO) 1.6 10^3/uL (1.5-3.5); LYMPHOCYTES % (AUTO) 11.5 %; MEAN CORPUSCULAR HEMOGLOBIN 25.4 pg (27.0-31.0); MEAN CORPUSCULAR HGB CONC 30.5 g/dL (32.0-36.0); MEAN CORPUSCULAR VOLUME 83.2 fL (81.0-99.0); NEUTROPHILS # (AUTO) 11.4 10^3/uL (1.5-6.6); NEUTROPHILS % (AUTO) 79.7 %; PLT - PLATELET COUNT 435 10^3/uL (130-450); RED BLOOD COUNT 5.36 10^6/uL (4.20-5.40); RED CELL DISTRIBUTION WIDTH 18.6 % (12.0-15.0); WHITE BLOOD COUNT 14.3 x10^3/uL (4.8-10.8)
[2020-02-18] MEDS: PANTOPRAZOLE 40 MG TABLET PO SCH (06:08)
[2020-02-18] MEDS: INSULIN ASPART 300 UNIT/3 ML PEN SUBQ SCH ×4 (08:31→20:29)
[2020-02-18] MEDS: ALPRAZolam 0.25 MG TABLET PO SCH (08:33)
[2020-02-18] MEDS: ATORVASTATIN 40 MG TABLET PO SCH (08:34)
[2020-02-18] MEDS: FENOFIBRATE 48 MG TABLET PO SCH (08:36)
[2020-02-18] MEDS: SERTRALINE 25 MG TABLET PO SCH (08:37)
[2020-02-18] MEDS: MULTIVITAMIN TABLET PO SCH (08:37)
[2020-02-18] MEDS: GABAPENTIN 300 MG CAPSULE PO SCH (08:37)
[2020-02-18] MEDS ORDERED: diltiaZEM CD 240 MG CAPSULE PO SCH (09:00)
--- NOTE | 2020-02-18 13:31 | PROVIDER PROGRESS NOTE ---
Assessment/Plan - Problem List (1) Abdominal pain Assessment/Plan: This is likely from her ongoing colitis. Yesterday part of the discomfort was from an over dilated bladder. She is on Cipro Flagyl empiric. We will de-escalate her diet from low fiber down to pured diet for easier digestion. (2) Acute diverticulitis Assessment/Plan: Continue with empiric Cipro Flagyl. De-escalate diet from soft, low fiber to a pured diet for longer bowel rest. (3) Atrial fibrillation with RVR Assessment/Plan: Despite resuming her Cardizem CD 240 mg dose this morning, the IV diltiazem is still needed because heart rate is running 1 10-1 20. We will change the p.o. Cardizem to CD 180 twice daily (360 mg daily total). We will try to wean off the diltiazem drip today. Transfer out of ICU when she is off the diltiazem drip Continue with her Xarelto for stroke prophylaxis. (4) Urinary retention with incomplete bladder emptying Assessment/Plan: There was difficulty emptying her bladder, she needs to be upright. (5) Insulin dependent type 2 diabetes mellitus Assessment/Plan: A1c of 7.6 shows fairly good control. Continue with Lantus insulin, the dose will be decreased because of her decreased oral intake, continue with sliding scale insulin coverage and POC glucosechecks. (6) JOANN on CPAP Assessment/Plan: Her home CPAP device was ordered to be used here - Current Meds Current Meds: Current Medications Generic Name Dose Route Start Last Admin Trade Name Freq PRN Reason Stop Dose Admin Acetaminophen 650 mg 02/17/20 23:14 02/18/20 01:01 Tylenol PO 650 mg Q6HR PRN Administration Pain or Fever > 38C (100.4F) Alprazolam 0.25 mg 02/18/20 09:00 02/18/20 08:33 Xanax PO 0.25 mg DAILY DAMIAN Administration Atorvastatin Calcium 80 mg 02/18/20 09:00 02/18/20 08:34 Lipitor PO 80 mg DAILY DAMIAN Administration Diphenhydramine HCl 25 mg 02/17/20 23:14 02/18/20 01:02 Benadryl PO 25 mg QPM PRN Administration Insomnia Fenofibrate 48 mg 02/18/20 09:00 02/18/20 08:36 Tricor PO 48 mg DAILY DAMIAN Administration Gabapentin 300 mg 02/18/20 09:00 02/18/20 08:37 Neurontin PO 300 mg DAILY DAMIAN Administration Diltiazem HCl 125 mg/ Dextrose 125 mls @ 5 mls/hr 02/17/20 07:00 02/18/20 12:00 IV 15 mg/hr .Q25H DAMIAN 15 mls/hr Titration Protocol 5 MG/HR Ciprofloxacin 400 mg in 200 mls @ 200 mls/hr 02/17/20 13:00 02/18/20 12:40 Cipro 400 Mg/200 Ml IV 200 mls/hr Q12H DAMIAN Administration Metronidazole 500 mg in 100 mls @ 100 mls/hr 02/17/20 12:00 02/18/20 12:30 Flagyl 500 Mg/100 Ml IV Infused Q8H DAMIAN Infusion Insulin Aspart 3 - 11 unit 02/17/20 08:00 02/18/20 11:43 Novolog SUBQ 5 unit 0800,1200,1700,2100 DAMIAN Administration Protocol Latanoprost 1 drops 02/17/20 21:00 02/17/20 20:53 Xalatan Ophth Drops EACHEYE 1 applic QPM DAMIAN Administration Metoprolol Tartrate 5 mg 02/17/20 23:13 02/18/20 03:42 Lopressor Inj IVP 5 mg Q4H PRN Administration PER PHYSICIAN ORDER Multivitamins 1 tab 02/18/20 09:00 02/18/20 08:37 Theragran PO 1 tab DAILY DAMIAN Administration Nystatin 1 applic 02/18/20 02:00 02/18/20 03:35 Nystop TOP 1 applic BID DAMIAN Administration Ondansetron HCl 4 mg 02/17/20 06:27 02/18/20 09:12 Zofran Inj IVP 4 mg Q6HR PRN Administration Nausea / Vomiting Pantoprazole Sodium 40 mg 02/17/20 07:00 02/18/20 06:08 Protonix PO 40 mg QDAC DAMIAN Administration Rivaroxaban 20 mg 02/17/20 17:00 02/17/20 17:00 Xarelto PO 20 mg QDDINNER DAMIAN Administration Sertraline HCl 25 mg 02/18/20 09:00 02/18/20 08:37 Zoloft PO 25 mg DAILY DAMIAN Administration Sodium Chloride 10 ml 02/17/20 06:27 02/18/20 03:43 Normal Saline Flush 0.9% IVP 10 ml PRN PRN Administration NEEDED PER PROVIDER ORDERS Sodium Chloride 10 ml 02/17/20 09:00 02/18/20 08:38 Normal Saline Flush 0.9% IVP 10 ml 0100,0900,1700 DAMIAN Administration - Lab Result Fish Bone Diagrams: 02/18/20 04:15 02/18/20 04:15 - Additional Planning My Orders: My Active Orders 02/17/20 13:00 Ciprofloxacin 400 mg/200 ml [Cipro 400 mg/200 ml] 400 mg in 200 ml IV Q12H 02/17/20 13:35 bisacodyL [Dulcolax] 5 mg PO DAILY PRN 02/17/20 15:45 Home CPAP/BiPAP [RC] .ONCE 02/17/20 17:00 Rivaroxaban [Xarelto] 20 mg PO QDDINNER 02/17/20 21:00 Latanoprost 0.005% Ophth Drops [Xalatan Ophth Drops] 1 drops EACHEYE QPM 02/18/20 09:00 ALPRAZolam [Xanax] 0.25 mg PO DAILY Atorvastatin [Lipitor] 80 mg PO DAILY Fenofibrate [Tricor] 48 mg PO DAILY Gabapentin [Neurontin] 300 mg PO DAILY Multivitamin [Theragran] 1 tab PO DAILY Sertraline [Zoloft] 25 mg PO DAILY 02/18/20 09:20 Miscellaenous Nursing Order [RC] ONCE 02/18/20 Lunch Dysphagia Puree Diet [DIET] 02/18/20 17:00 diltiaZEM CD [Cardizem Cd] 180 mg PO BIDWM Subjective - Subjective Patient Reports: Nausea, Pain (This appears to be around the time of intake of food) Objective Vital Signs: Vital Signs - 24 hr 02/17/20 02/17/20 02/17/20 14:00 15:00 15:54 Temperature 36.8 C Heart Rate [ 114 H 106 H Monitoring electrodes] Respiratory 25 H 25 H Rate Blood Pressure Blood Pressure 181/130 H 156/95 H [Left Radial artery] Blood Pressure [Right Brachial artery] O2 Saturation 02/17/20 02/17/20 02/17/20 16:00 17:00 18:00 Temperature 36.8 C Heart Rate [ 105 H 109 H 121 H Monitoring electrodes] Respiratory 24 12 12 Rate Blood Pressure Blood Pressure 161/114 H 184/125 H 168/98 H [Left Radial artery] Blood Pressure [Right Brachial artery] O2 Saturation 02/17/20 02/17/20 02/17/20 19:00 19:41 20:00 Temperature 37.1 C Heart Rate [ 118 H 110 H 111 H Monitoring electrodes] Respiratory 10 L 12 19 Rate Blood Pressure Blood Pressure 170/116 H 176/97 H 163/102 H [Left Radial artery] Blood Pressure [Right Brachial artery] O2 Saturation 96 94 02/17/20 02/17/20 02/17/20 21:00 22:00 23:00 Temperature 36.9 C Heart Rate [ 130 H 114 H 122 H Monitoring electrodes] Respiratory 15 22 18 Rate Blood Pressure Blood Pressure 149/104 H 152/110 H 125/91 H [Left Radial artery] Blood Pressure [Right Brachial artery] O2 Saturation 97 02/18/20 02/18/20 02/18/20 00:00 01:00 02:00 Temperature Heart Rate [ 108 H 93 Monitoring electrodes] Respiratory 20 16 Rate Blood Pressure Blood Pressure 139/85 H 152/96 H 169/109 H [Left Radial artery] Blood Pressure [Right Brachial artery] O2 Saturation 97 02/18/20 02/18/20 02/18/20 03:00 03:42 03:45 Temperature Heart Rate [ 100 Monitoring electrodes] Respiratory Rate Blood Pressure 163/111 H Blood Pressure 141/109 H 159/108 H [Left Radial artery] Blood Pressure [Right Brachial artery] O2 Saturation 02/18/20 02/18/20 02/18/20 03:46 03:50 03:55 Temperature 36.9 C Heart Rate [ 115 H 96 94 Monitoring electrodes] Respiratory 16 Rate Blood Pressure Blood Pressure 166/102 H [Left Radial artery] Blood Pressure [Right Brachial artery] O2 Saturation 96 02/18/20 02/18/20 02/18/20 04:00 04:12 04:15 Temperature 36.8 C Heart Rate [ 97 100 Monitoring electrodes] Respiratory 16 Rate Blood Pressure 137/93 H Blood Pressure 153/89 H 137/93 H [Left Radial artery] Blood Pressure [Right Brachial artery] O2 Saturation 96 02/18/20 02/18/20 02/18/20 04:30 05:00 06:10 Temperature Heart Rate [ 101 H 93 97 Monitoring electrodes] Respiratory 16 18 Rate Blood Pressure Blood Pressure 133/97 H 148/91 H [Left Radial artery] Blood Pressure 133/90 H [Right Brachial artery] O2 Saturation 95 97 02/18/20 02/18/20 02/18/20 07:00 08:00 09:00 Temperature 36.4 C L Heart Rate [ 105 H 108 H 113 H Monitoring electrodes] Respiratory 20 14 18 Rate Blood Pressure Blood Pressure [Left Radial artery] Blood Pressure 133/104 H 134/107 H 151/109 H [Right Brachial artery] O2 Saturation 96 95 94 02/18/20 02/18/20 02/18/20 10:00 11:00 12:00 Temperature 36.8 C Heart Rate [ 114 H 109 H 116 H Monitoring electrodes] Respiratory 14 17 18 Rate Blood Pressure Blood Pressure [Left Radial artery] Blood Pressure 164/92 H 160/79 H 157/101 H [Right Brachial artery] O2 Saturation 95 94 95 02/18/20 13:00 Temperature Heart Rate [ 99 Monitoring electrodes] Respiratory 18 Rate Blood Pressure Blood Pressure [Left Radial artery] Blood Pressure 145/86 H [Right Brachial artery] O2 Saturation 95 Oxygen O2 Source Room air I&O (Last 24 Hrs): Intake and Output Totals x24h 02/16/20 02/17/20 02/18/20 23:59 23:59 23:59 Intake Total 3884.500 1406.25 Output Total 5465 1200 Balance -1580.500 206.25 General: Alert, Oriented x3 HEENT: Mucous membr. moist/pink Neck: Supple, No JVD Neuro: Alert, Non Focal Cardiovascular: No murmurs Respiratory: No respiratory distress Abdomen: Soft, No tenderness, Other (Diminished bowel sounds.) Extremities: No edema - Results Results: Laboratory Results WBC 14.3 x10^3/uL (4.8-10.8) H 02/18/20 04:15 RBC 5.36 10^6/uL (4.20-5.40) 02/18/20 04:15 Hgb 13.6 g/dL (12.0-16.0) 02/18/20 04:15 Hct 44.6 % (37.0-47.0) 02/18/20 04:15 MCV 83.2 fL (81.0-99.0) 02/18/20 04:15 MCH 25.4 pg (27.0-31.0) L 02/18/20 04:15 MCHC 30.5 g/dL (32.0-36.0) L 02/18/20 04:15 RDW 18.6 % (12.0-15.0) H 02/18/20 04:15 Plt Count 435 10^3/uL (130-450) 02/18/20 04:15 MPV 11.0 fL (7.9-10.8) H 02/18/20 04:15 Neut # (Auto) 11.4 10^3/uL (1.5-6.6) H 02/18/20 04:15 Lymph # (Auto) 1.6 10^3/uL (1.5-3.5) 02/18/20 04:15 Rowan # (Auto) 1.0 10^3/uL (0.0-1.0) 02/18/20 04:15 Eos # (Auto) 0.1 10^3/uL (0.0-0.7) 02/18/20 04:15 Baso # (Auto) 0.1 10^3/uL (0.0-0.1) 02/18/20 04:15 Absolute Nucleated RBC 0.00 x10^3/uL 02/18/20 04:15 Nucleated RBC % 0.0 /100WBC 02/18/20 04:15 PT 31.2 secs (9.9-12.6) H 02/17/20 05:15 INR 3.0 (0.8-1.2) H 02/17/20 05:15 APTT 54.3 secs (24.9-33.3) H 02/17/20 05:15 Sodium 137 mmol/L (135-145) 02/18/20 04:15 Potassium 3.6 mmol/L (3.5-5.0) 02/18/20 04:15 Chloride 105 mmol/L (101-111) 02/18/20 04:15 Carbon Dioxide 20 mmol/L (21-32) L 02/18/20 04:15 Anion Gap 12.0 (6-13) 02/18/20 04:15 BUN 14 mg/dL (6-20) 02/18/20 04:15 Creatinine 0.9 mg/dL (0.4-1.0) 02/18/20 04:15 Estimated GFR (MDRD) 62 (>89) L 02/18/20 04:15 Glucose 202 mg/dL (70-100) H 02/18/20 04:15 Estimat Average Glucose 171 mg/dL (70-100) H 02/17/20 05:15 Hemoglobin A1c % 7.6 % (4.27-6.07) H 02/17/20 05:15 Lactic Acid 1.0 mmol/L (0.5-2.2) 02/17/20 05:15 Calcium 8.4 mg/dL (8.5-10.3) L 02/18/20 04:15 Magnesium 1.9 mg/dL (1.7-2.8) 02/17/20 05:15 Total Bilirubin 0.4 mg/dL (0.2-1.0) 02/17/20 05:15 AST 19 IU/L (10-42) 02/17/20 05:15 ALT 21 IU/L (10-60) 02/17/20 05:15 Alkaline Phosphatase 65 IU/L (42-121) 02/17/20 05:15 Total Creatine Kinase 52 IU/L (22-269) 02/17/20 05:15 Troponin I High Sens 7.0 ng/L (2.3-14.8) 02/17/20 05:15 B-Natriuretic Peptide 155 pg/mL (5-100) H 02/17/20 05:15 Total Protein 8.6 g/dL (6.7-8.2) H 02/17/20 05:15 Albumin 3.9 g/dL (3.2-5.5) 02/17/20 05:15 Globulin 4.7 g/dL (2.1-4.2) H 02/17/20 05:15 Albumin/Globulin Ratio 0.8 (1.0-2.2) L 02/17/20 05:15 Lipase 26 U/L (22-51) 02/17/20 05:15 TSH 3.17 uIU/mL (0.34-5.60) 02/17/20 05:15 Urine Color YELLOW 02/17/20 06:20 Urine Clarity CLEAR (CLEAR) 02/17/20 06:20 Urine pH 7.0 PH (5.0-7.5) 02/17/20 06:20 Ur Specific [place] 1.020 (1.002-1.030) 02/17/20 06:20 Urine Protein TRACE mg/dL (NEGATIVE) 02/17/20 06:20 Urine Glucose (UA) >=1000 mg/dL (NEGATIVE) H 02/17/20 06:20 Urine Ketones NEGATIVE mg/dL (NEGATIVE) 02/17/20 06:20 Urine Occult Blood TRACE-INTA (NEGATIVE) 02/17/20 06:20 Urine Nitrite NEGATIVE (NEGATIVE) 02/17/20 06:20 Urine Bilirubin NEGATIVE (NEGATIVE) 02/17/20 06:20 Urine Urobilinogen 0.2 (NORMAL) E.U./dL (NORMAL) 02/17/20 06:20 Ur Leukocyte Esterase NEGATIVE (NEGATIVE) 02/17/20 06:20 Ur Microscopic Review NOT INDICATED 02/17/20 06:20 Urine Culture Comments NOT INDICATED 02/17/20 06:20 Nasal Screen MRSA (PCR) NEGATIVE (NEGATIVE) 02/17/20 09:00 Urine Opiates Screen NEGATIVE (NEGATIVE) 02/17/20 06:20 Ur Oxycodone Screen NEGATIVE (NEGATIVE) 02/17/20 06:20 Urine Methadone Screen NEGATIVE (NEGATIVE) 02/17/20 06:20 Ur Propoxyphene Screen NEGATIVE (NEGATIVE) 02/17/20 06:20 Ur Barbiturates Screen NEGATIVE (NEGATIVE) 02/17/20 06:20 Ur Tricyclics Screen NEGATIVE (NEGATIVE) 02/17/20 06:20 Ur Phencyclidine Scrn NEGATIVE (NEGATIVE) 02/17/20 06:20 Ur Amphetamine Screen NEGATIVE (NEGATIVE) 02/17/20 06:20 U Methamphetamines Scrn NEGATIVE (NEGATIVE) 02/17/20 06:20 U Benzodiazepines Scrn POSITIVE (NEGATIVE) H 02/17/20 06:20 Urine Cocaine Screen NEGATIVE (NEGATIVE) 02/17/20 06:20 U Cannabinoids Screen POSITIVE (NEGATIVE) H 02/17/20 06:20 Ethyl Alcohol < 5.0 mg/dL 02/17/20 05:15 - Procedures Procedures: Procedures REPLACEMENT OF LEFT LENS WITH SYNTH SUB, PERC APPROACH (12/10/16) REPLACEMENT OF RIGHT LENS WITH SYNTH SUB, PERC APPROACH (01/28/17)
--- NOTE | 2020-02-18 14:53 | PHARMACY PROGRESS NOTE ---
- Monitoring Indication for anticoagulation: Atrial Fibrillation Previous home regime: 20MG PO WITH DINNER Potentially interacting medications: SERTRALINE - INCREASED RISK OF BLEED Risk factors for bleed: Hypertension, History of stroke, Heart disease or [place], Age >65, Diabetes - Recommendations Dosing: Anticoagulation Monitoring 02/18/20 02/17/20 02/17/20 04:15 05:15 05:15 Hgb 13.6 13.6 Hct 44.6 45.0 PT 31.2 H INR 3.0 H Last Dose Given: 20MG PO WITH DINNER S&S of bleeding: NONE NOTED Pharmacy recommendation: Continue current regime
[2020-02-18] MEDS: diltiaZEM CD 180 MG CAPSULE PO SCH (17:01)
[2020-02-18] MEDS: RIVAROXABAN 10 MG TABLET PO SCH (17:02)
[2020-02-18] MEDS: LATANOPROST 0.005% OPHTH DROPS EACHEYE SCH (20:31)
[2020-02-19] MEDS: SODIUM CHLORIDE FLUSH 0.9% 10 ML SYRINGE IVP SCH ×3 (00:15→17:16)
[2020-02-19] MEDS: CIPROFLOXACIN 400 MG/200 ML 400 MG/200 ML BAG IV SCH ×2 (00:15→14:24)
[2020-02-19] MEDS: metroNIDAZOLE 500 MG/100 ML 500 MG/100 ML BAG IV SCH ×3 (03:36→20:35)
[2020-02-19] MEDS: ACETAMINOPHEN 325 MG TABLET PO PRN (04:32)
[2020-02-19 05:05] LABS: BASOPHILS # (AUTO) 0.1 10^3/uL (0.0-0.1); BASOPHILS % (AUTO) 0.4 %; EOSINOPHILS # (AUTO) 0.3 10^3/uL (0.0-0.7); EOSINOPHILS % (AUTO) 1.9 %; HGB - HEMOGLOBIN 13.2 g/dL (12.0-16.0); LYMPHOCYTES # (AUTO) 2.5 10^3/uL (1.5-3.5); LYMPHOCYTES % (AUTO) 18.3 %; MEAN CORPUSCULAR HEMOGLOBIN 24.9 pg (27.0-31.0); MEAN CORPUSCULAR HGB CONC 29.7 g/dL (32.0-36.0); MEAN CORPUSCULAR VOLUME 83.6 fL (81.0-99.0); MEAN PLATELET VOLUME 10.9 fL (7.9-10.8); MONOCYTES # (AUTO) 1.2 10^3/uL (0.0-1.0); MONOCYTES % (AUTO) 8.6 %; NEUTROPHILS # (AUTO) 9.4 10^3/uL (1.5-6.6); PLT - PLATELET COUNT 433 10^3/uL (130-450); RED BLOOD COUNT 5.31 10^6/uL (4.20-5.40); RED CELL DISTRIBUTION WIDTH 18.5 % (12.0-15.0); WHITE BLOOD COUNT 13.4 x10^3/uL (4.8-10.8)
[2020-02-19 05:17] LABS: CALCIUM 8.5 mg/dL (8.5-10.3); CREATININE 1.1 mg/dL (0.4-1.0)
[2020-02-19] MEDS: PANTOPRAZOLE 40 MG TABLET PO SCH (07:12)
[2020-02-19] MEDS: diltiaZEM CD 180 MG CAPSULE PO SCH ×2 (07:48→18:07)
[2020-02-19] MEDS: ATORVASTATIN 40 MG TABLET PO SCH (07:55)
[2020-02-19] MEDS: MULTIVITAMIN TABLET PO SCH (07:56)
[2020-02-19] MEDS: ALPRAZolam 0.25 MG TABLET PO SCH (07:56)
[2020-02-19] MEDS: GABAPENTIN 300 MG CAPSULE PO SCH (07:56)
[2020-02-19] MEDS: SERTRALINE 25 MG TABLET PO SCH (07:56)
[2020-02-19] MEDS: NYSTATIN POWDER 15 GM TOP SCH ×2 (08:13→20:46)
[2020-02-19] MEDS: INSULIN ASPART 300 UNIT/3 ML PEN SUBQ SCH ×4 (08:13→20:44)
[2020-02-19] MEDS: FENOFIBRATE 48 MG TABLET PO SCH (08:13)
[2020-02-19] MEDS: METOPROLOL 5 MG/5 ML VIAL IVP PRN (09:09)
--- NOTE | 2020-02-19 16:05 | PROVIDER PROGRESS NOTE ---
Assessment/Plan - Problem List (1) Atrial fibrillation with RVR Assessment/Plan: HR was < 100, therefore Diltiazem drip was weaned to off at 0300 today. Now, HR > 130 and she got the higher po Diltiazem dose plus additional iv Lopressor iv doses. Today her BUN/creatinine went up, suggesting dehydration. This is adding to her faster heart rate. We will start IV saline hydration. We will try not to resume the diltiazem drip and will further increase her p.o. Cardizem. Remain in the ICU in case diltiazem drip does need to be resumed. She is on Xarelto, home dose, for stroke prophylaxis and A. fib (2) Abdominal pain Assessment/Plan: Improving as well as WBC Will advance diet, and see how she tolerates it. She is requesting this increase (3) Acute diverticulitis Assessment/Plan: She is on Cipro and Flagyl She herself wonders if she needs a colonoscopy. Thus would be done after the inflammation has been treated, so as an outpatient. (4) Urinary retention with incomplete bladder emptying Assessment/Plan: She has success when she had is in a vertical position, needs to use the bedside commode or toilet (5) Insulin dependent type 2 diabetes mellitus Assessment/Plan: She is on 70/30 long-acting insulin at home. Her A1c was 7.6 indicating fairly good control. Here we are using Lantus 10 units. Continue with carb controlled diet and sliding scale insulin coverage as well (6) JOANN on CPAP Assessment/Plan: Her home CPAP device was ordered to be used here. - Current Meds Current Meds: Current Medications Generic Name Dose Route Start Last Admin Trade Name Freq PRN Reason Stop Dose Admin Acetaminophen 650 mg 02/17/20 23:14 02/19/20 04:32 Tylenol PO 650 mg Q6HR PRN Administration Pain or Fever > 38C (100.4F) Alprazolam 0.25 mg 02/18/20 09:00 02/19/20 07:56 Xanax PO 0.25 mg DAILY DAMIAN Administration Atorvastatin Calcium 80 mg 02/18/20 09:00 02/19/20 07:55 Lipitor PO 80 mg DAILY DAMIAN Administration Bisacodyl 5 mg 02/17/20 13:35 02/19/20 09:58 Dulcolax PO 5 mg DAILY PRN Administration Laxative Effect Diltiazem HCl 180 mg 02/18/20 17:00 02/19/20 07:48 Cardizem Cd PO 180 mg BIDWM DAMIAN Administration Diphenhydramine HCl 25 mg 02/17/20 23:14 02/18/20 20:31 Benadryl PO 25 mg QPM PRN Administration Insomnia Fenofibrate 48 mg 02/18/20 09:00 02/19/20 08:13 Tricor PO 48 mg DAILY DAMIAN Administration Gabapentin 300 mg 02/18/20 09:00 02/19/20 07:56 Neurontin PO 300 mg DAILY DAMIAN Administration Diltiazem HCl 125 mg/ Dextrose 125 mls @ 5 mls/hr 02/17/20 07:00 02/18/20 22 :00 IV 0 mg/hr .Q25H DAMIAN 0 mls/hr Titration Protocol 5 MG/HR Ciprofloxacin 400 mg in 200 mls @ 200 mls/hr 02/17/20 13:00 02/19/20 15:24 Cipro 400 Mg/200 Ml IV Infused Q12H DAMIAN Infusion Metronidazole 500 mg in 100 mls @ 100 mls/hr 02/17/20 12:00 02/19/20 13:47 Flagyl 500 Mg/100 Ml IV Infused Q8H DAMIAN Infusion Insulin Aspart 3 - 11 unit 02/17/20 08:00 02/19/20 12:10 Novolog SUBQ 5 unit 0800,1200,1700,2100 DAMIAN Administration Protocol Latanoprost 1 drops 02/17/20 21:00 02/18/20 20:31 Xalatan Ophth Drops EACHEYE 1 applic QPM DAMIAN Administration Metoprolol Tartrate 5 mg 02/17/20 23:13 02/19/20 09:09 Lopressor Inj IVP 5 mg Q4H PRN Administration PER PHYSICIAN ORDER Multivitamins 1 tab 02/18/20 09:00 02/19/20 07:56 Theragran PO 1 tab DAILY DAMIAN Administration Nystatin 1 applic 02/18/20 02:00 02/19/20 08:13 Nystop TOP 1 applic BID DAMIAN Administration Ondansetron HCl 4 mg 02/17/20 06:27 02/18/20 09:12 Zofran Inj IVP 4 mg Q6HR PRN Administration Nausea / Vomiting Pantoprazole Sodium 40 mg 02/17/20 07:00 02/19/20 07:12 Protonix PO 40 mg QDAC DAMIAN Administration Rivaroxaban 20 mg 02/17/20 17:00 02/18/20 17:02 Xarelto PO 20 mg QDDINNER DAMIAN Administration Sertraline HCl 25 mg 02/18/20 09:00 02/19/20 07:56 Zoloft PO 25 mg DAILY DAMIAN Administration Sodium Chloride 10 ml 02/17/20 06:27 02/18/20 03:43 Normal Saline Flush 0.9% IVP 10 ml PRN PRN Administration NEEDED PER PROVIDER ORDERS Sodium Chloride 10 ml 02/17/20 09:00 02/19/20 07:57 Normal Saline Flush 0.9% IVP 10 ml 0100,0900,1700 DAMIAN Administration - Lab Result Fish Bone Diagrams: 02/19/20 04:40 02/19/20 04:40 - Additional Planning My Orders: My Active Orders 02/18/20 17:00 diltiaZEM CD [Cardizem Cd] 180 mg PO BIDWM 02/19/20 Lunch DIET [Soft (Low Fiber) Diet] [DIET] 02/19/20 17:00 Lactobacillus Rhamnosus GG [Culturelle] 1 cap PO DAILY Sodium Chloride 0.9% [Normal Saline 0.9%] 1,000 ml IV 83.333 mls/hr 02/19/20 21:00 Insulin Glargine [Lantus Solostar] 10 unit SUBQ QPM Subjective - Subjective Patient Reports: Feeling Better, Resting Comfortably, No Complaints (Does not feel racing or palpitations over her heart) Objective Vital Signs: Vital Signs - 24 hr 02/18/20 02/18/20 02/18/20 17:00 18:00 19:00 Temperature 36.3 C L Heart Rate [ 75 107 H 97 Monitoring electrodes] Respiratory 18 14 Rate Blood Pressure Blood Pressure [Left Brachial artery] Blood Pressure 143/75 H 157/84 H 161/95 H [Right Brachial artery] O2 Saturation 95 02/18/20 02/18/20 02/18/20 19:08 19:15 19:20 Temperature Heart Rate [ 100 101 H 95 Monitoring electrodes] Respiratory Rate Blood Pressure Blood Pressure 151/111 H 130/85 H 147/79 H [Left Brachial artery] Blood Pressure [Right Brachial artery] O2 Saturation 02/18/20 02/18/20 02/18/20 19:25 19:45 20:00 Temperature Heart Rate [ 94 96 96 Monitoring electrodes] Respiratory 20 Rate Blood Pressure Blood Pressure 146/96 H 147/85 H 158/88 H [Left Brachial artery] Blood Pressure [Right Brachial artery] O2 Saturation 97 02/18/20 02/18/20 02/18/20 20:15 20:30 20:45 Temperature Heart Rate [ 101 H 107 H 108 H Monitoring electrodes] Respiratory Rate Blood Pressure Blood Pressure 154/76 H 136/87 H 150/102 H [Left Brachial artery] Blood Pressure [Right Brachial artery] O2 Saturation 02/18/20 02/18/20 02/18/20 21:00 21:15 22:00 Temperature Heart Rate [ 100 100 95 Monitoring electrodes] Respiratory 16 16 Rate Blood Pressure Blood Pressure 135/82 H 144/80 H 138/96 H [Left Brachial artery] Blood Pressure [Right Brachial artery] O2 Saturation 02/18/20 02/18/20 02/19/20 23:00 23:48 00:00 Temperature 36.3 C L Heart Rate [ 86 97 98 Monitoring electrodes] Respiratory 20 16 Rate Blood Pressure Blood Pressure 136/82 H 139/100 H [Left Brachial artery] Blood Pressure [Right Brachial artery] O2 Saturation 96 02/19/20 02/19/20 02/19/20 01:00 02:00 03:00 Temperature 36.9 C Heart Rate [ 96 98 102 H Monitoring electrodes] Respiratory 20 20 Rate Blood Pressure Blood Pressure 144/92 H 128/99 H [Left Brachial artery] Blood Pressure [Right Brachial artery] O2 Saturation 95 97 02/19/20 02/19/20 02/19/20 04:00 05:00 06:00 Temperature Heart Rate [ 109 H 109 H 113 H Monitoring electrodes] Respiratory 20 16 Rate Blood Pressure Blood Pressure 148/108 H 134/87 H 150/100 H [Left Brachial artery] Blood Pressure [Right Brachial artery] O2 Saturation 02/19/20 02/19/20 02/19/20 07:00 08:00 09:09 Temperature 36.8 C Heart Rate [ 116 H 122 H Monitoring electrodes] Respiratory 18 Rate Blood Pressure 159/113 H Blood Pressure 130/83 H 161/111 H [Left Brachial artery] Blood Pressure [Right Brachial artery] O2 Saturation 97 02/19/20 02/19/20 02/19/20 09:24 10:00 11:00 Temperature 36.0 C L Heart Rate [ 106 H 107 H 105 H Monitoring electrodes] Respiratory 18 16 18 Rate Blood Pressure Blood Pressure 135/93 H 154/107 H 137/101 H [Left Brachial artery] Blood Pressure [Right Brachial artery] O2 Saturation 97 98 97 02/19/20 02/19/20 02/19/20 13:00 14:00 15:00 Temperature 36.5 C Heart Rate [ 95 90 99 Monitoring electrodes] Respiratory 18 17 17 Rate Blood Pressure Blood Pressure 115/70 142/83 H 151/102 H [Left Brachial artery] Blood Pressure [Right Brachial artery] O2 Saturation 96 97 98 Oxygen O2 Source Room air I&O (Last 24 Hrs): Intake and Output Totals x24h 02/17/20 02/18/20 02/19/20 23:59 23:59 23:59 Intake Total 3884.500 2061.501 1890 Output Total 5465 1550 1450 Balance -1580.500 511.501 440 General: Alert, Oriented x3 HEENT: Mucous membr. moist/pink Neck: Supple, No JVD Neuro: Alert, Non Focal Cardiovascular: Other (Tachycardic, irregularly irregular) Respiratory: No respiratory distress Abdomen: Soft, Other (Diminished bowel sounds. Very large pannus over her thig hs) Extremities: No edema - Results Results: Laboratory Results WBC 13.4 x10^3/uL (4.8-10.8) H 02/19/20 04:40 RBC 5.31 10^6/uL (4.20-5.40) 02/19/20 04:40 Hgb 13.2 g/dL (12.0-16.0) 02/19/20 04:40 Hct 44.4 % (37.0-47.0) 02/19/20 04:40 MCV 83.6 fL (81.0-99.0) 02/19/20 04:40 MCH 24.9 pg (27.0-31.0) L 02/19/20 04:40 MCHC 29.7 g/dL (32.0-36.0) L 02/19/20 04:40 RDW 18.5 % (12.0-15.0) H 02/19/20 04:40 Plt Count 433 10^3/uL (130-450) 02/19/20 04:40 MPV 10.9 fL (7.9-10.8) H 02/19/20 04:40 Neut # (Auto) 9.4 10^3/uL (1.5-6.6) H 02/19/20 04:40 Lymph # (Auto) 2.5 10^3/uL (1.5-3.5) 02/19/20 04:40 Parmer # (Auto) 1.2 10^3/uL (0.0-1.0) H 02/19/20 04:40 Eos # (Auto) 0.3 10^3/uL (0.0-0.7) 02/19/20 04:40 Baso # (Auto) 0.1 10^3/uL (0.0-0.1) 02/19/20 04:40 Absolute Nucleated RBC 0.00 x10^3/uL 02/19/20 04:40 Nucleated RBC % 0.0 /100WBC 02/19/20 04:40 PT 31.2 secs (9.9-12.6) H 02/17/20 05:15 INR 3.0 (0.8-1.2) H 02/17/20 05:15 APTT 54.3 secs (24.9-33.3) H 02/17/20 05:15 Sodium 139 mmol/L (135-145) 02/19/20 04:40 Potassium 3.6 mmol/L (3.5-5.0) 02/19/20 04:40 Chloride 106 mmol/L (101-111) 02/19/20 04:40 Carbon Dioxide 17 mmol/L (21-32) L 02/19/20 04:40 Anion Gap 16.0 (6-13) H 02/19/20 04:40 BUN 22 mg/dL (6-20) H 02/19/20 04:40 Creatinine 1.1 mg/dL (0.4-1.0) H 02/19/20 04:40 Estimated GFR (MDRD) 50 (>89) L 02/19/20 04:40 Glucose 201 mg/dL (70-100) H 02/19/20 04:40 Estimat Average Glucose 171 mg/dL (70-100) H 02/17/20 05:15 Hemoglobin A1c % 7.6 % (4.27-6.07) H 02/17/20 05:15 Lactic Acid 1.0 mmol/L (0.5-2.2) 02/17/20 05:15 Calcium 8.5 mg/dL (8.5-10.3) 02/19/20 04:40 Magnesium 1.9 mg/dL (1.7-2.8) 02/17/20 05:15 Total Bilirubin 0.4 mg/dL (0.2-1.0) 02/17/20 05:15 AST 19 IU/L (10-42) 02/17/20 05:15 ALT 21 IU/L (10-60) 02/17/20 05:15 Alkaline Phosphatase 65 IU/L (42-121) 02/17/20 05:15 Total Creatine Kinase 52 IU/L (22-269) 02/17/20 05:15 Troponin I High Sens 7.0 ng/L (2.3-14.8) 02/17/20 05:15 B-Natriuretic Peptide 155 pg/mL (5-100) H 02/17/20 05:15 Total Protein 8.6 g/dL (6.7-8.2) H 02/17/20 05:15 Albumin 3.9 g/dL (3.2-5.5) 02/17/20 05:15 Globulin 4.7 g/dL (2.1-4.2) H 02/17/20 05:15 Albumin/Globulin Ratio 0.8 (1.0-2.2) L 02/17/20 05:15 Lipase 26 U/L (22-51) 02/17/20 05:15 TSH 3.17 uIU/mL (0.34-5.60) 02/17/20 05:15 Urine Color YELLOW 02/17/20 06:20 Urine Clarity CLEAR (CLEAR) 02/17/20 06:20 Urine pH 7.0 PH (5.0-7.5) 02/17/20 06:20 Ur Specific Parks 1.020 (1.002-1.030) 02/17/20 06:20 Urine Protein TRACE mg/dL (NEGATIVE) 02/17/20 06:20 Urine Glucose (UA) >=1000 mg/dL (NEGATIVE) H 02/17/20 06:20 Urine Ketones NEGATIVE mg/dL (NEGATIVE) 02/17/20 06:20 Urine Occult Blood TRACE-INTA (NEGATIVE) 02/17/20 06:20 Urine Nitrite NEGATIVE (NEGATIVE) 02/17/20 06:20 Urine Bilirubin NEGATIVE (NEGATIVE) 02/17/20 06:20 Urine Urobilinogen 0.2 (NORMAL) E.U./dL (NORMAL) 02/17/20 06:20 Ur Leukocyte Esterase NEGATIVE (NEGATIVE) 02/17/20 06:20 Ur Microscopic Review NOT INDICATED 02/17/20 06:20 Urine Culture Comments NOT INDICATED 02/17/20 06:20 Nasal Screen MRSA (PCR) NEGATIVE (NEGATIVE) 02/17/20 09:00 Urine Opiates Screen NEGATIVE (NEGATIVE) 02/17/20 06:20 Ur Oxycodone Screen NEGATIVE (NEGATIVE) 02/17/20 06:20 Urine Methadone Screen NEGATIVE (NEGATIVE) 02/17/20 06:20 Ur Propoxyphene Screen NEGATIVE (NEGATIVE) 02/17/20 06:20 Ur Barbiturates Screen NEGATIVE (NEGATIVE) 02/17/20 06:20 Ur Tricyclics Screen NEGATIVE (NEGATIVE) 02/17/20 06:20 Ur Phencyclidine Scrn NEGATIVE (NEGATIVE) 02/17/20 06:20 Ur Amphetamine Screen NEGATIVE (NEGATIVE) 02/17/20 06:20 U Methamphetamines Scrn NEGATIVE (NEGATIVE) 02/17/20 06:20 U Benzodiazepines Scrn POSITIVE (NEGATIVE) H 02/17/20 06:20 Urine Cocaine Screen NEGATIVE (NEGATIVE) 02/17/20 06:20 U Cannabinoids Screen POSITIVE (NEGATIVE) H 02/17/20 06:20 Ethyl Alcohol < 5.0 mg/dL 02/17/20 05:15 - Procedures Procedures: Procedures REPLACEMENT OF LEFT LENS WITH SYNTH SUB, PERC APPROACH (12/10/16) REPLACEMENT OF RIGHT LENS WITH SYNTH SUB, PERC APPROACH (01/28/17)
[2020-02-19] MEDS: RIVAROXABAN 10 MG TABLET PO SCH (17:15)
[2020-02-19] MEDS: LACTOBACILLUS RHAMNOSUS GG CAPSULE PO SCH (17:15)
[2020-02-19] MEDS: SODIUM CHLORIDE 0.9% 1,000 ML IV SCH (17:20)
[2020-02-19] MEDS: LATANOPROST 0.005% OPHTH DROPS EACHEYE SCH (20:38)
[2020-02-19] MEDS ORDERED: INSULIN GLARGINE 300 UNIT/3 ML PEN SUBQ SCH (21:00)
[2020-02-19] MEDS: diphenhydrAMINE 25 MG CAPSULE PO PRN (22:32)
[2020-02-20] MEDS: SODIUM CHLORIDE FLUSH 0.9% 10 ML SYRINGE IVP SCH ×3 (00:26→17:18)
[2020-02-20] MEDS: CIPROFLOXACIN 400 MG/200 ML 400 MG/200 ML BAG IV SCH ×2 (00:36→13:24)
[2020-02-20] MEDS: metroNIDAZOLE 500 MG/100 ML 500 MG/100 ML BAG IV SCH ×2 (03:49→11:57)
[2020-02-20] MEDS: PANTOPRAZOLE 40 MG TABLET PO SCH (05:37)
[2020-02-20 05:53] LABS: BASOPHILS # (AUTO) 0.1 10^3/uL (0.0-0.1); BASOPHILS % (AUTO) 0.4 %; EOSINOPHILS # (AUTO) 0.4 10^3/uL (0.0-0.7); EOSINOPHILS % (AUTO) 3.1 %; LYMPHOCYTES # (AUTO) 2.2 10^3/uL (1.5-3.5); LYMPHOCYTES % (AUTO) 17.7 %; MEAN CORPUSCULAR HEMOGLOBIN 24.9 pg (27.0-31.0); MEAN PLATELET VOLUME 10.6 fL (7.9-10.8); MONOCYTES % (AUTO) 8.3 %; NEUTROPHILS # (AUTO) 8.8 10^3/uL (1.5-6.6); NEUTROPHILS % (AUTO) 69.9 %; PLT - PLATELET COUNT 412 10^3/uL (130-450); RED BLOOD COUNT 5.22 10^6/uL (4.20-5.40); RED CELL DISTRIBUTION WIDTH 18.5 % (12.0-15.0); WHITE BLOOD COUNT 12.5 x10^3/uL (4.8-10.8)
[2020-02-20 06:06] LABS: CALCIUM 8.3 mg/dL (8.5-10.3)
[2020-02-20] MEDS ORDERED: diltiaZEM 30 MG TABLET PO SCH (08:00)
[2020-02-20] MEDS: diltiaZEM 30 MG TABLET PO SCH ×3 (10:32→17:14)
[2020-02-20] MEDS: MULTIVITAMIN TABLET PO SCH (10:32)
[2020-02-20] MEDS: ALPRAZolam 0.25 MG TABLET PO SCH (10:32)
[2020-02-20] MEDS: GABAPENTIN 300 MG CAPSULE PO SCH (10:33)
[2020-02-20] MEDS: LACTOBACILLUS RHAMNOSUS GG CAPSULE PO SCH (10:33)
[2020-02-20] MEDS: FENOFIBRATE 48 MG TABLET PO SCH (10:33)
[2020-02-20] MEDS: ATORVASTATIN 40 MG TABLET PO SCH (10:33)
[2020-02-20] MEDS: SERTRALINE 25 MG TABLET PO SCH (10:34)
[2020-02-20] MEDS: NYSTATIN POWDER 15 GM TOP SCH (10:45)
[2020-02-20] MEDS: INSULIN ASPART 300 UNIT/3 ML PEN SUBQ SCH ×3 (10:45→17:14)
[2020-02-20] MEDS: SODIUM CHLORIDE 0.9% 1,000 ML IV SCH (11:57)
[2020-02-20] MEDS: RIVAROXABAN 10 MG TABLET PO SCH (17:15)
--- NOTE | 2020-02-20 18:25 | Discharge Plan ---
Discharge Plan Problem Reviewed?: Yes Disposition: Home, Self Care Condition: Stable Prescriptions: diltiaZEM CD [Cardizem Cd] 180 mg PO BID #60 capsule Ciprofloxacin HCl 50 mg PO BID #28 tablet metroNIDAZOLE [Flagyl] 500 mg PO Q8H #42 tablet Health Concerns: You were seen in the hospital because your heart rate was elevated and you had diverticulitis which is inflammation of your colon. You were treated with IV antibiotics with improvement. We adjusted your diltiazem dose to help control your heart rate and it is better controlled on this new dose. Please take the antibiotics as prescribed and please start taking the new dose of diltiazem. Plan of Treatment: Please take ciprofloxacin 500 mg twice daily for 7 days and Flagyl 3 times daily for 7 days. Please stop taking your old dose of diltiazem and begin taking 180 mg twice daily. Care Goals: Please follow-up with your primary care provider in 1 to 2 weeks. He should be referred to a general surgeon or GI doctor as you would likely benefit from a colonoscopy in 6 weeks. Assessment: The patient expressed understanding of the treatment plan. Additional Instructions or Follow Up instructions: Please follow-up with your primary care provider in 1 to 2 weeks. Please return to the emergency department if you develop any chest pain, dyspnea, palpitations, worsening abdominal pain, fever, chills. No Smoking: If you smoke, Please STOP! Call for help. Follow-up with: Phillip Fisher MD [Primary Care Provider] -
--- NOTE | 2020-02-20 18:29 | DISCHARGE SUMMARY ---
Discharge Summary Admit Date: 02/17/20 Discharge Date: 02/20/20 Discharging Provider: Lenny Rizvi Primary Care Provider: Phillip Fisher Code Status: Attempt Resuscitation Condition at Discharge: Stable Discharge Disposition: 01 Home, Self Care - DIAGNOSES Admission Diagnoses: Abdominal pain Diverticulitis Urinary retention A. fib with RVR Hypertensive urgency Dependent type 2 diabetes Cardiomegaly Sleep apnea on CPAP Stroke, hemorrhagic by her report, however the patient is on Xarelto Discharge Diagnoses with Status of Each Condition: Atrial fibrillation with RVR - resolved. Diverticulitis - improved. Insulin-dependent diabetes - stable. JOANN on CPAP - stable. Hypertension - stable. - HPI History of Present Illness: Please refer to H&P of Dr. Sánchez on 02/17/2020. - HOSPITAL COURSE Hospital Course: She was admitted for diverticulitis and atrial fibrillation with rapid ventricular response. She required diltiazem drip and so she was placed in the intensive care unit. She was treated with IV ciprofloxacin and Flagyl. Her home diltiazem 240 mg was continued as well as Xarelto for the atrial fibrillation but despite this, she required IV diltiazem to keep her heart rate controlled. Her Cardizem dose was changed to 180 mg twice daily. Her abdominal pain improved with IV antibiotics and her diet was advanced as tolerated. Her heart rate remained controlled on the higher dose of diltiazem. She was discharged on hospital day 4 on oral ciprofloxacin and Flagyl to complete 7 more days of therapy for the diverticulitis. She was discharged on the increased dose of diltiazem 180 mg twice daily as her heart rate has remained controlled on this dose. She was asked to follow-up with her primary care provider as she will need an outpatient colonoscopy in 6 to 8 weeks. - ALLERGIES Allergies/Adverse Reactions: Allergies Allergy/AdvReac Type Severity Reaction Status Date / Time estrogens, conjugated Allergy Unknown Verified 02/17/20 04:53 [From Prempro] medroxyprogesterone acetate * Allergy Unknown Verified 02/17/20 04:53 [From Prempro] - MEDICATIONS Home Medications: Ambulatory Orders Medication Instructions Recorded Confirmed Multivitamin [Multivitamins] 1 each PO DAILY 08/30/15 02/17/20 Acetaminophen [Tylenol Extra 500 mg PO DAILY PRN 03/16/17 02/17/20 Strength] ALPRAZolam [Alprazolam] 0.25 mg PO DAILY 02/17/20 02/17/20 Atorvastatin Calcium [Lipitor] 80 mg PO DAILY 02/17/20 02/17/20 Doxylamine Succinate [Unisom] 25 mg PO DAILY PRN 02/17/20 02/17/20 Empagliflozin [Jardiance] 10 mg PO DAILY 02/17/20 02/17/20 Fenofibric Acid (Choline) 45 mg PO DAILY 02/17/20 02/17/20 [Fenofibric Acid] Gabapentin [Neurontin] 300 mg PO DAILY 02/17/20 02/17/20 Insulin Aspart Prot/Insuln Asp 0 units SUBQ BID 02/17/20 02/17/20 [Novolog Mix 70-30 Flexpen] Latanoprost [Xalatan] 1 drops EACHEYE QPM 02/17/20 02/17/20 Lisinopril [Zestril] 20 mg PO BID 02/17/20 02/17/20 Loperamide [Imodium] 2 mg PO DAILY PRN 02/17/20 02/17/20 Methenamine/Sodium Salicylate [Azo 1 tab PO DAILY PRN 02/17/20 02/17/20 Urinary Tract Defense Tab] Prazosin HCl 1 mg PO QPM 02/17/20 02/17/20 Rivaroxaban [Xarelto] 20 mg PO QPM 02/17/20 02/17/20 Sertraline HCl 25 mg PO DAILY 02/17/20 02/17/20 bisacodyL [Dulcolax] 5 mg PO DAILY PRN 02/17/20 02/17/20 Ciprofloxacin HCl 50 mg PO BID #28 tablet 02/20/20 diltiaZEM CD [Cardizem Cd] 180 mg PO BID #60 capsule 02/20/20 metroNIDAZOLE [Flagyl] 500 mg PO Q8H #42 tablet 02/20/20 - PHYSICAL EXAM AT DISCHARGE General Appearance: positive: No acute distress, Alert Eyes Bilateral: positive: Normal inspection ENT: positive: ENT inspection nml Neck: positive: Nml inspection Respiratory: positive: No respiratory distress. negative: Wheezes, Rales Cardiovascular: negative: Irregularly irregular, Tachycardia, Bradycardia, Systolic murmur Abdomen: positive: Non-tender, No distention. negative: Tenderness, Guarding, Rebound Skin: positive: Warm, Dry Extremities: positive: Full ROM Neurologic/Psychiatric: positive: Oriented x3, Motor nml. negative: Disoriented to person, Disoriented to place, Disoriented to time Physical Exam Other/Comments: Vital Signs (72 hours) 02/19/20 02/19/20 02/19/20 13:00 14:00 15:00 Temperature 36.5 C Heart Rate [ Brachial] Heart Rate [ 95 90 99 Monitoring electrodes] Respiratory 18 17 17 Rate Blood Pressure Blood Pressure 115/70 142/83 H 151/102 H [Left Brachial artery] Blood Pressure [Right Brachial artery] O2 Saturation 96 97 98 02/19/20 02/19/20 02/19/20 16:00 17:00 18:00 Temperature 36.5 C 36.5 C Heart Rate [ Brachial] Heart Rate [ 96 104 H 110 H Monitoring electrodes] Respiratory 15 16 16 Rate Blood Pressure Blood Pressure 137/110 H 168/78 H 137/74 H [Left Brachial artery] Blood Pressure [Right Brachial artery] O2 Saturation 98 99 97 02/19/20 02/19/20 02/20/20 21:30 22:34 00:41 Temperature 36.6 C Heart Rate [ Brachial] Heart Rate [ 97 108 H Monitoring electrodes] Respiratory 16 Rate Blood Pressure Blood Pressure 146/104 H 153/98 H 135/97 H [Left Brachial artery] Blood Pressure [Right Brachial artery] O2 Saturation 97 02/20/20 02/20/20 02/20/20 05:00 07:27 10:32 Temperature 36.7 C 36.7 C Heart Rate [ Brachial] Heart Rate [ 115 H 65 Monitoring electrodes] Respiratory 18 18 Rate Blood Pressure 151/92 H Blood Pressure 123/84 H 133/91 H [Left Brachial artery] Blood Pressure [Right Brachial artery] O2 Saturation 96 96 02/20/20 02/20/20 02/20/20 12:01 13:23 15:59 Temperature 36.2 C L 36.3 C L Heart Rate [ 61 94 Brachial] Heart Rate [ Monitoring electrodes] Respiratory 18 18 Rate Blood Pressure 120/81 H Blood Pressure [Left Brachial artery] Blood Pressure 130/89 H 135/87 H [Right Brachial artery] O2 Saturation 94 97 02/20/20 18:56 Temperature 36.5 C Heart Rate [ 92 Brachial] Heart Rate [ Monitoring electrodes] Respiratory 20 Rate Blood Pressure Blood Pressure [Left Brachial artery] Blood Pressure 155/85 H [Right Brachial artery] O2 Saturation 98 - LABS Result Diagrams: 02/20/20 05:46 02/20/20 05:46 - DIAGNOSTIC IMAGING Diagnostic Imaging Results: Final report reviewed - FOLLOW UP Follow Up: She was asked to follow-up with her primary care provider in 1 to 2 weeks as she will need an outpatient colonoscopy in 6 to 8 weeks. - TIME SPENT Time Spent in Discharge (Minutes): 32
[2020-02-20] MEDS ORDERED: metroNIDAZOLE 250 MG TABLET PO STA (18:40)
[2020-02-20] MEDS ORDERED: CIPROFLOXACIN 250 MG TABLET PO STA (18:40)
[2020-02-20] MEDS ORDERED: diltiaZEM CD 120 MG CAPSULE PO STA ×2 (18:41→18:56)
[2020-02-20 18:57] VITALS: BP 155/85
[2020-02-20] MEDS ORDERED: diltiaZEM CD 180 MG CAPSULE PO SCH (21:00)
== END 2020-02-20 19:10 | disposition home or self-care (01) | DRG 309 ==
LOC: EDUNIT# → ED 04:23 → ICU 06:27 → MS2 02-19 22:35
PROVIDERS: ADMIT Internal Medicine; ATTEND Internal Medicine
DX: I48.91 Unspecified atrial fibrillation (principal); K57.32 Diverticulitis of large intestine without perforation or abscess without bleeding; Z68.42 Body mass index [BMI] 45.0-49.9, adult; E11.9 Type 2 diabetes mellitus without complications; I16.0 Hypertensive urgency; I10 Essential (primary) hypertension; G47.33 Obstructive sleep apnea (adult) (pediatric); R33.9 Retention of urine, unspecified; R32 Unspecified urinary incontinence; R35.1 Nocturia; N28.9 Disorder of kidney and ureter, unspecified; E66.9 Obesity, unspecified; G89.29 Other chronic pain; M19.90 Unspecified osteoarthritis, unspecified site; M54.9 Dorsalgia, unspecified; K44.9 Diaphragmatic hernia without obstruction or gangrene; Z79.4 Long term (current) use of insulin; Z79.01 Long term (current) use of anticoagulants; Z79.2 Long term (current) use of antibiotics; Z79.899 Other long term (current) drug therapy; Z86.73 Personal history of transient ischemic attack (TIA), and cerebral infarction without residual deficits
CPT/HCPCS: 36415; 51701; 70450; 71045; 71275; 74174; 80048; 80053; 80306; 80320; 81003; 82550; 83036; 83605; 83690; 83735; 83880; 84443; 84484; 85025; 85610; 85730; 87150; 93005; 96361; 96374; 96376; 99285; 99291; A9270; J1815; Q9967; 81001; 87086

== ENCOUNTER 2020-03-04 10:45 | Outpatient (CLI) | payer OTHER, MEDICARE ==
--- NOTE | 2020-03-07 12:40 | Mammography Report ---
UNILATERAL LEFT DIGITAL DIAGNOSTIC MAMMOGRAM 3D/2D: 03/04/2020 CLINICAL: Patient returns today to evaluate a focal asymmetry in the left breast. Comparison is made to exams dated: 01/19/2020 mammogram, 11/03/2018 mammogram, 11/01/2017 mammogram, an d 07/13/2016 mammogram - [facility]. The tissue of left breast is predominantly fat ty. There is an irregular focal asymmetry with coarse calcifications in the left breast at 6 o'clock midd le depth. There is architectural distortion associated with the focal asymmetry. When the current diagnostic images are compared to prior exams dating back to at least 07/13/2016, the abnormality does not appear to have significantly changed. No other significant masses or calcifications are seen in the breast. IMPRESSION: PROBABLY BENIGN The irregular focal asymmetry in the left breast is probably benign. A follow-up left mammogram in 6 months is recommended to demonstrate stability. This exam was interpreted at Station ID: [id number]. NOTE: For mammograms, a report in lay terms will be sent to the patient. Approximately 15% of breast malignancies will not be visualized mammographically. In the management of a palpable breast mass, a negative mammogram must not discourage biopsy of a clinically suspicious lesion. Electronically Signed By: Kali dorado/[email or web address]:03/06/2020 09:30:25 ACR BI-RADS Category 3: Probably benign 3343F PARENCHYMAL PATTERN: (F) - The breast(s) demonstrate(s) diffuse fatty replacement. BI-RADS CATEGORY: (3) - 3 Mammogram [id number] 6 month follow-up LATERALITY: (L)
== END 2020-03-04 10:46 | disposition home or self-care (01) ==
LOC: DI 10:45
PROVIDERS: ATTEND Internal Medicine
DX: R92.8 Other abnormal and inconclusive findings on diagnostic imaging of breast (principal)

== ENCOUNTER 2020-11-08 12:57 | Outpatient (CLI) | payer OTHER, MEDICARE ==
--- NOTE | 2020-11-08 13:17 | XRAY Report ---
PROCEDURE: Chest 2 View X-Ray INDICATIONS: RIB SPRAIN TECHNIQUE: 2 view(s) of the chest. COMPARISON: None. FINDINGS: Surgical changes and devices: None. Lungs and pleura: No pleural effusions or pneumothorax. Lungs are clear. Mediastinum: Mediastinal contours are normal. Heart size is normal. Bones and chest wall: No suspicious bony abnormalities. Soft tissues appear unremarkable. IMPRESSION: No trauma found. No pneumothorax identified. Reviewed by: Danny Heard MD on 11/08/2020 1:15 PM PDT Approved by: Danny Heard MD on 11/08/2020 1:15 PM PDT Station ID: [id number]
== END 2020-11-08 12:58 | disposition home or self-care (01) ==
LOC: DI 12:57
PROVIDERS: ATTEND Family Medicine
DX: S23.41XA Sprain of ribs, initial encounter (principal)

== ENCOUNTER 2020-12-04 11:19 | Outpatient (CLI) | payer OTHER, MEDICARE ==
--- NOTE | 2020-12-05 12:49 | Mammography Report ---
BILATERAL DIGITAL DIAGNOSTIC MAMMOGRAM 3D/2D: 12/04/2020 CLINICAL: Patient returns for a 6 month follow up of the left breast. Routine screening. Comparison is made to exams dated: 03/04/2020 mammogram, 01/19/2020 mammogram, 11/03/2018 mammogram, mammogram, 07/13/2016 mammogram, and 06/24/2015 mammogram - [facility]. The tissue of both breasts is predominantly fatty. There is a benign irregular focal asymmetry with coarse calcifications in the left breast at 6 o'cloc k middle depth. When the current diagnostic images are compared to prior exams dating back to at [facility] 07/13/2016, the abnormality does not appear significantly changed, and is therefore considered rafael ign. No other significant masses, calcifications, or other findings are seen in either breast. IMPRESSION: BENIGN There is no mammographic evidence of malignancy. A 1 year screening mammogram is recommended. This exam was interpreted at Station ID: [id number]. NOTE: For mammograms, a report in lay terms will be sent to the patient. Approximately 15% of breast malignancies will not be visualized mammographically. In the management of a palpable breast mass, a negative mammogram must not discourage biopsy of a clinically suspicious lesion. Electronically Signed By: Kali dorado/[email or web address]:12/04/2020 14:55:18 ACR BI-RADS Category 2: Benign Finding(s) 3342F PARENCHYMAL PATTERN: (F) - The breast(s) demonstrate(s) diffuse fatty replacement. BI-RADS CATEGORY: (2) - 2 RECOMMENDATION: (ANNUAL) - Recommend routine annual screening mammography. [id number] 1 year screening LATERALITY: (B)
== END 2020-12-04 11:20 | disposition home or self-care (01) ==
LOC: DI 11:19
PROVIDERS: ATTEND Internal Medicine
DX: R92.8 Other abnormal and inconclusive findings on diagnostic imaging of breast (principal)

== ENCOUNTER 2021-02-17 15:02 | Outpatient (CLI) | payer OTHER, MEDICARE ==
--- NOTE | 2021-02-17 16:32 | SLEEP CARE CONSULTATION ---
Information from patient questionnaire entered by Vickey Ochoa. I have reviewed and concur with the information entered by Vickey Ochoa. This document represents the service I personally performed and the decisions made by me, Erma Dent MD, [facility]. History of Present Illness Service Date and Time: 02/17/2021 1502 Previous diagnosis: Very Severe, Obstructive Sleep Apnea-Hypopnea Syndrome AHI: 70.7 Reason for follow up: annual (Last seen 02/2018) Equipment type: BiPAP Equipment obtained from: [employer] Year and Where: [facility] in late and titration at [facility] 2012 HPI additional information: Ms. Petersen is a 67 year old lady who was diagnosed with very severe obstructive sleep apnea-hypopnea (AHI was 70.7) here in 2011. She was prescribed a BiPAP which she has been using regularly since. She was last seen 3 years ago. The BiPAP is set at 16/11 cmH2O. She wears the ResMed Brady nasal pillows with Suma headgear. The compliance data show usage in 24 out of the past 30 nights, averaging 8.6 hours a night. The > 4 hour compliance rate for the past 30 days is 80%. The residual AHI is 1.7 and average air leak is 8 seconds a night. Her equipment came from [employer] in [place]. She reports significant improvement when using her BiPAP. [place] Sleepiness Scale score is 1. CPAP Compliance Data - Data Reviewed with Patient Average duration of nightly device use: 8 h 38 min Compliance rate %: 80 Current pressure setting (cmH2O): 16/11 Humidity settin Heated hose settin Average residual AHI: 1.7 Average large leak: 8 sec Subjective Missed days of use due to: reports: other Patient concerns: reports: nasal congestion Initial [place] Sleepiness Scale score: 17 (in 2010) Current [place] Sleepiness Scale score: 1 Allergies and Home Medications Drug allergies reviewed: Yes Home medication list reviewed: Yes Review of Systems Review of systems same as previous: Yes Physical Exam Heart Rate: 102 O2 Saturation: 93 Height: 5 ft 1 in Weight: 258 lb Body Mass Index: 48.7 BMI Classification: Morbidly Obese Impression and Plan IMPRESSION: 1. Obstructive Sleep Apnea-Hypopnea Syndrome, very severe, as previously diagnosed 9 years ago. The patient has been doing very well on BiPAP. She has had excellent compliance. The current pressure setting appears effective and comfortable. Narrow oropharynx and obesity are common predisposing factors for obstructive sleep apnea-hypopnea syndrome. No adjustment is necessary today. In regards to the recall on all [employer] Respirdes[employer] DreamStation devices, we discussed the risks and benefits of stopping versus continuing to use the gerhard ce. In severe cases, it appears the benefits outweigh the risks and it is reasonable to continue until the replace part or machine becomes available. Symptoms that could be related to the recalled sound abatement foam piece are headache, nausea, chest tightness, and upper airway irritation. The patients should also look for debris in the air outlet, water reservoir, and hose. If found, the device should not be used. In [id number] cases, the patients should refrain from using the device. The patient has already registered her machine. Plan: 1. Continue with BiPAP therapy. 2. Notify the clinic if she finds debris in her CPAP or she develops respiratory symptoms. 3. Try to lose weight. 4. Return for follow up after she receives the replacement device from [employer]. Visit Type: In Office Time Spent with Patient (minutes): 15 Provider Statement: I spent 100% of the Face to Face Visit with the patient with greater than 50% spent counseling the patient and coordination of care.
== END 2021-02-17 15:03 | disposition home or self-care (01) ==
LOC: SC 15:02
PROVIDERS: ATTEND Internal Medicine Pulmonary Disease
DX: G47.33 Obstructive sleep apnea (adult) (pediatric) (principal); E66.01 Morbid (severe) obesity due to excess calories; Z68.42 Body mass index [BMI] 45.0-49.9, adult
CPT/HCPCS: 99212

== ENCOUNTER 2021-07-30 13:21 | Outpatient (CLI) | payer OTHER, MEDICARE ==
--- NOTE | 2021-07-30 14:32 | SLEEP CARE CONSULTATION ---
Information from patient questionnaire entered by Inocencia Guzman MA. I have reviewed and concur with the information entered by Inocencia Guzman MA. This document represents the service I personally performed and the decisions made by , Abbey Ambrocio ARNP. History of Present Illness Service Date and Time: 07/30/2021 1321 Previous diagnosis: Very Severe, Obstructive Sleep Apnea-Hypopnea Syndrome AHI: 70.7 Reason for follow up: first compliance (SET UP DATE 06/15, FIRST COMPLIANCE, ), first compliance after device update Equipment type: BiPAP Equipment obtained from: [employer] ([employer]) Mask style: Nasal (N20) Mask brand: Resmed Backup mask available: Yes (other mask) Last cushion change: 2 weeks Prior sleep studies: Yes Year and Where: [facility] in late and titration at [facility] 2011 HPI additional information: DIONNE MCWILLIAMS was diagnosed to have very severe, AHI 70.7, obstructive sleep apnea- hypopnea syndrome and returned today for BIPAP therapy first compliance after updating device follow-up. Sleep Study - Results Year and Where: [facility] in late and titration at [facility] 2011 CPAP Compliance Data - Data Reviewed with Patient Average duration of nightly device use: 7 HOURS 50 MINUTES Compliance rate %: 100 Current pressure setting (cmH2O): 16/11 Average residual AHI: 2.8 Central apnea: .2 Obstructive apnea: 2.5 Average large leak: 13.0 Subjective Missed days of use due to: reports: mask issues (pt does not like her mask, ) Patient concerns: reports: mask discomfort, mask leak noise. denies: aerophagia, air blowing in eyes, condensation in mask/hose, nasal congestion, dry mouth, nose, throat, epistaxis Observed to snore while using device: No Current pressure setting perceived as: comfortable On therapy, patient: reports: sleeping better, awakening more refreshed, being more awake and alert during the day, more rested overall. denies: drowsiness while driving Initial [place] Sleepiness Scale score: 17 (in 2010) Current [place] Sleepiness Scale score: 1 (2021) Allergies and Home Medications Known drug allergies: No Drug allergies reviewed: Yes Home medication list reviewed: Yes (no changes) Allergy and home medication list: Allergies estrogens, conjugated [From Prempro] Allergy (Verified 10/07/20 14:33) Unknown medroxyprogesterone acetate * [From Prempro] Allergy (Verified 10/07/20 14:33) Unknown Review of Systems Review of systems same as previous: Yes (no changes) Physical Exam Vital signs obtained and entered by: SOFÍA RAMESH Blood Pressure: 137/94 (left, pulse 95, resp 18,) Cuff size: wrist Heart Rate: 85 O2 Saturation: 94 (paper mask) Height: 5 ft 1 in Weight: 250 lb (per pt drs office) Weight change since last visit: 8 lb loss Body Mass Index: 47.2 BMI Classification: Morbidly Obese Impression and Plan 1. Obstructive Sleep Apnea-Hypopnea Syndrome, very severe, with excellent treatment compliance and good apnea control. On BIPAP therapy, the patient has better sleep quality and is more rested overall. Patient has mask issues with her nasal N20 mask. She states it leaks in her eyes and will make a sore on the left side of her nose. She would like to go back to a nasal pillows mask that has ear loops. I will write prescription to switch to the Brady Fx Suma nasal pillows mask system. Her DME supplier should help her with the supplies. Patient's apnea severity and rationale for treatment to reduce apnea, improve sleep quality and reduce cardiovascular and cerebrovascular events was reviewed. I also reviewed the benefit of consistent device use of BIPAP for hypertension, cardiac disease (CHF), arrhythmia, diabetes, gastric reflux and RLS. 2. Obesity, unspecified. Patient has lost weight. Currently patients BMI is 47.2. Obesity increases the risk of apnea, BIPAP pressure requirements and overall health risks especially cardiovascular and diabetes. Thus patient is advised to lose weight. Weight loss can be done with reducing portion size, reducing refined foods and balancing content with vegetables, fruit and whole grain foods. In addition, patient encouraged to get regular exercise. * Continue BIPAP pressure at 16/11 cmH2O * Try a nasal pillows mask for comfort (Brady Fx Suma) * Notify me if snoring with mask or feeling that the pressure is too much or too little * Attempt to lose weight * Call this office if any problems using BIPAP * Return for follow up in 1 year, or sooner if concerns arise Counseling Topics: Spare mask, Weight loss health impact Visit Type: In Office Time Spent with Patient (minutes): 23 Provider Statement: I spent 100% of the Face to Face Visit with the patient with greater than 50% spent counseling the patient and coordination of care.
[2021-07-30 14:33] VITALS: BP 137/94
== END 2021-07-30 13:22 | disposition home or self-care (01) ==
LOC: SC 13:21
PROVIDERS: ATTEND Nurse Practitioner Family
DX: G47.33 Obstructive sleep apnea (adult) (pediatric) (principal); E66.01 Morbid (severe) obesity due to excess calories; Z68.42 Body mass index [BMI] 45.0-49.9, adult
CPT/HCPCS: 99212; 99213

== ENCOUNTER 2022-06-13 20:09 | Outpatient (CLI) | payer MEDICARE, OTHER | END 2022-06-13 20:10 | disposition EMS.NT | LOC: EMS 20:09 | DX: Z03.89 Encounter for observation for other suspected diseases and conditions ruled out (principal) ==

== ENCOUNTER 2022-07-26 19:06 | Outpatient (CLI) | payer OTHER, MEDICARE | END 2022-07-26 19:07 | disposition critical access hospital (66) | LOC: EMS 19:06 | DX: R06.02 Shortness of breath (principal); I48.91 Unspecified atrial fibrillation | CPT/HCPCS: A0425; A0427 ==

== ENCOUNTER 2022-08-07 21:42 | Outpatient (CLI) | payer OTHER, MEDICARE | END 2022-08-07 23:59 | disposition EMS.NT | LOC: EMS 21:42 | DX: Z03.89 Encounter for observation for other suspected diseases and conditions ruled out (principal) ==

== ENCOUNTER 2022-08-27 09:51 | Outpatient (CLI) | payer OTHER, MEDICARE ==
[2022-08-27 10:03] LABS: BASOPHILS # (AUTO) 0.1 10^3/uL (0.0-0.1); BASOPHILS % (AUTO) 0.5 %; EOSINOPHILS # (AUTO) 0.3 10^3/uL (0.0-0.7); EOSINOPHILS % (AUTO) 2.4 %; HCT - HEMATOCRIT 40.3 % (37.0-47.0); HGB - HEMOGLOBIN 11.9 g/dL (12.0-16.0); LYMPHOCYTES # (AUTO) 2.1 10^3/uL (1.5-3.5); MEAN CORPUSCULAR HEMOGLOBIN 26.2 pg (27.0-31.0); MEAN CORPUSCULAR HGB CONC 29.5 g/dL (32.0-36.0); MEAN CORPUSCULAR VOLUME 88.6 fL (81.0-99.0); MEAN PLATELET VOLUME 10.5 fL (7.9-10.8); MONOCYTES % (AUTO) 8.6 %; NEUTROPHILS # (AUTO) 7.7 10^3/uL (1.5-6.6); NRBC ABSOLUTE COUNT (AUTO) 0.03 x10^3/uL; NUCLEATED RED BLOOD CELLS AUTO 0.3 /100WBC; PLT - PLATELET COUNT 450 10^3/uL (130-450); RED BLOOD COUNT 4.55 10^6/uL (4.20-5.40); RED CELL DISTRIBUTION WIDTH 21.4 % (12.0-15.0); SLIDE REVIEW? Indicated; WHITE BLOOD COUNT 11.2 x10^3/uL (4.8-10.8)
[2022-08-27 10:20] LABS: CALCIUM 8.4 mg/dL (8.5-10.3); CREATININE 1.6 mg/dL (0.4-1.0); POTASSIUM 3.6 mmol/L (3.5-5.0)
[2022-08-27 10:27] LABS: PLATELET ESTIMATE, MANUAL NORMAL (130-450,000) (NORMAL); PLATELET MORPHOLOGY NORMAL APPEARANCE (NORMAL)
--- NOTE | 2022-08-27 10:57 | XRAY Report ---
PROCEDURE: Chest 2 View X-Ray INDICATIONS: SHORTNESS OF BREATH TECHNIQUE: 2 views of the chest were acquired. COMPARISON: None. FINDINGS: Surgical changes and devices: None. Lungs and pleura: No pleural effusions or pneumothorax. Resolution of pulmonary edema. Mediastinum: Mediastinal contours appear normal. Cardiomegaly. Bones and chest wall: No suspicious bony lesions. Overlying soft tissues appear unremarkable. IMPRESSION: Cardiomegaly. Resolution of pulmonary edema. Reviewed by: Remington Tolbert MD on 08/27/2022 10:56 AM PDT Approved by: Remington Tolbert MD on 08/27/2022 10:56 AM PDT Station ID: [id number]
== END 2022-08-27 09:52 | disposition home or self-care (01) ==
LOC: LAB 09:51
PROVIDERS: ATTEND Internal Medicine Cardiovascular Disease
DX: R06.02 Shortness of breath (principal); I51.7 Cardiomegaly; Z87.09 Personal history of other diseases of the respiratory system
CPT/HCPCS: 36415; 80048; 83880; 85025

== ENCOUNTER 2022-10-13 09:56 | Outpatient (CLI) | payer OTHER, MEDICARE | END 2022-10-13 09:57 | disposition E | LOC: EMS 09:56 | DX: I46.9 Cardiac arrest, cause unspecified (principal) | CPT/HCPCS: A0425; A0428 ==